=== PATIENT | female | born 1950 | race Caucasian/White ===

== ENCOUNTER → 2018-07-02 07:54 | Outpatient (CLI) | payer MEDICARE, OTHER, SELFPAY ==
[2018-07-02 09:38] LABS: Add Manual Diff / Slide Review NO; Eosinophils Percent Auto 2.3 % (2-4); Hematocrit 43.2 % (36-46); Hemoglobin 14.3 g/dL (12.0-16.0); Lymphocytes Percent Auto 30.3 % (25-40); Mean Corpuscular Hemoglobin 31.4 PG (26-34); Monocytes Percent Auto 9.1 % (3-14); Neutrophils Absolute Auto 3100 /uL (3000-5900); Neutrophils Percent Auto 57.3 % (50-75); Platelet Count 245 X10^3/uL (150-400); Red Blood Cell Count 4.54 X10^6/uL (4.0-5.2); Red Cell Distribution Width 13.5 % (11.6-14.8); White Blood Cell Count 5.4 X10^3/uL (4.5-11.0)
[2018-07-02 10:03] LABS: Alanine Aminotransferase 38 IU/L (9-52); Albumin 4.3 g/dL (3.5-5.0); Alkaline Phosphatase 52 U/L (38-126); Aspartate Aminotransferase 28 IU/L (14-36); BUN Creatinine Ratio 26.7 (6-22); Bilirubin Total 0.5 mg/dL (0.2-1.3); Blood Urea Nitrogen 16 mg/dL (7-17); Calcium 9.2 mg/dL (8.4-10.2); Carbon Dioxide 28 mmol/L (22-32); Chloride 101 mmol/L (98-107); Cholesterol 208 mg/dL (140-199); Estimated Glomerular Filt Rate > 60.0 mL/min (>60); Globulin 2.1 g/dL (1.7-4.1); Glucose 87 mg/dL (80-110); HDL Cholesterol 96 mg/dL (40-60); HEMOLYSIS < 15 (0-50); LDL Cholesterol Calculated 93 mg/dL (<100); Potassium 3.9 mmol/L (3.4-5.1); Sodium 142 mmol/L (137-145); Total Protein 6.4 g/dL (6.3-8.2); Triglycerides 93 mg/dL (35-150)
[2018-07-02 10:17] LABS: Vitamin D 25 Hydroxy (D3) 50.3 ng/mL (30.0-100.0)
[2018-07-02 10:33] LABS: TSH w/ Reflex to FT4 1.36 uIU/mL (0.47-4.68)
== END ==
PROVIDERS: PCP Family Medicine; Visit Provider Family Medicine
DX: E55.9 Vitamin D deficiency, unspecified (principal); Z13.6 Encounter for screening for cardiovascular disorders; M85.9 Disorder of bone density and structure, unspecified; N95.1 Menopausal and female climacteric states; C44.91 Basal cell carcinoma of skin, unspecified
CPT/HCPCS: 36415; 80053; 80061; 82306; 84443; 85025

== ENCOUNTER 2018-07-11 11:48 | Day surgery (SDC) | payer MEDICARE, OTHER, SELFPAY ==
[2018-07-11 12:09] VITALS: BP 130/76; PULSE 74; RESP 16; TEMP 36.4; O2SAT 100; BMI 23.1
[2018-07-11] MEDS: SODIUM CHLORIDE 0.9% 1,000 ML 200 ML IV (12:19)
[2018-07-11] MEDS: MIDAZOLAM 5 MG/5 ML VIAL IV (12:50)
[2018-07-11] MEDS: fentaNYL 250 MCG/5 ML INJ IV (12:51)
[2018-07-11 13:02] VITALS: BP 105/58; PULSE 61; RESP 19; TEMP 36.6; O2SAT 100
--- NOTE | 2018-07-11 13:06 | SUR.PHASEII ---
Pt arrived from endo room awake, vs stable.
[2018-07-11 13:07] VITALS: BP 109/65; PULSE 63; RESP 12; O2SAT 99
--- NOTE | 2018-07-11 17:33 | HP_ITS ---
HISTORY OF PRESENT ILLNESS: A 67-year-old white female patient coming in for a screening colonoscopy, had a prior colonoscopy 10 years ago with no polyps. She is asymptomatic, has no hematochezia or rectal bleeding. No melena. No abdominal pain. Denies diabetes, heart disease, or hypertension. ALLERGIES: NO KNOWN ALLERGIES. MEDICATIONS: Taking no significant medications. REVIEW OF SYSTEMS: Denies exertional chest pain or unusual shortness of breath. GI is as in the HPI. negative. Neurologic: No strokes or seizures. PHYSICAL EXAMINATION VITAL SIGNS: Blood pressure 130/76, heart rate 74. HEENT: Normal. NECK: No adenopathy. LUNGS: Clear. HEART: Regular rhythm. No murmur. ABDOMEN: Soft. No organomegaly. No tenderness. RECTAL: Rectal exam will be done at the time of the colonoscopy. DIAGNOSIS: Screening colonoscopy. Shani Contreras - Nohemy/anne doc#: [id number]/job#: [id number] dd: 07/11/2018 12:33:00 dt: 07/11/2018 17:23:00 DICTATING /COPIES TO: Fernando Sheppard MD COPIES MNE: BRI
--- NOTE | 2018-07-12 07:41 | OP_ITS ---
DATE OF SERVICE: 07/11/2018 PREOP DIAGNOSIS: Screening colonoscopy. POSTOP DIAGNOSIS: Normal colon. OPERATION: Total colonoscopy to the cecum. SURGEON: Fernando Sheppard MD DESCRIPTION OF PROCEDURE: The patient was properly identified during surgical pause. Given conscious sedation, total of 4 of versed and 150 of fentanyl. Flexible fiberoptic colonoscope inserted transanally to the cecum. The patient has a normal colon. No tumors. No polyps. No ulcers. No diverticulosis. The procedure was very well tolerated. Shani Contreras - /anderson/ts doc#: [id number]/job#: [id number] dd: 07/11/2018 13:00:00 dt: 07/12/2018 07:35:00 DICTATING /COPIES TO: Fernando Sheppard MD COPIES MNE: BRI
== END 2018-07-11 13:30 | disposition home or self-care (01) ==
PROVIDERS: Family Provider Family Medicine; PCP Family Medicine; Visit Provider Surgery
PROC: 0DJD8ZZ Inspection of Lower Intestinal Tract, Via Natural or Artificial Opening Endoscopic (ICD-10-PCS; CPT 45378; principal; 2018-07-11 12:45)
DX: Z12.11 Encounter for screening for malignant neoplasm of colon (principal)
CPT/HCPCS: G0121; J2250; J3010

== ENCOUNTER → 2018-07-14 12:43 | Outpatient (CLI) | payer MEDICARE, OTHER, SELFPAY ==
--- NOTE | 2018-07-14 | DI.MG.S_ITS ---
BILATERAL DIGITAL SCREENING MAMMOGRAM 3D/2D WITH CAD: 07/14/2018 CLINICAL: Routine screening. Family history of breast cancer. Comparison is made to exams dated: 07/09/2017 mammogram, 07/03/2016 mammogram, and 07/25/2015 mammogram - [facility]. The tissue of both breasts is heterogeneously dense. This may lower the sensitivity of mammography. Current study was also evaluated with a Computer Aided Detection (CAD) system. No significant masses, calcifications, or other findings are seen in either breast. There has been no significant interval change. IMPRESSION: NEGATIVE There is no mammographic evidence of malignancy. A 1 year screening mammogram is recommended. This exam was interpreted at Station ID: [id number]. NOTE: For mammograms, a report in lay terms will be sent to the patient. Approximately 15% of breast malignancies will not be visualized mammographically. In the management of a palpable breast mass, a negative mammogram must not discourage biopsy of a clinically suspicious lesion. Electronically Signed By: Shun robb/nilda:07/15/2018 11:46:57 letter sent: Normal Exam ACR BI-RADS Category 1: Negative [id number]
--- NOTE | 2018-07-14 | DI.RAD.S_ITS ---
This blank DEXA report has been sent in error by the PACS system. The correct and complete report will be forthcoming in 1-2 days. Thank you for your patience and understanding. Dictated by: Alec Walters M.D. on 07/14/2018 at 14:10 Approved by: Alec Walters M.D. on 07/14/2018 at 14:10
== END ==
PROVIDERS: Family Provider Family Medicine; PCP Family Medicine; Visit Provider Family Medicine
DX: Z80.3 Family history of malignant neoplasm of breast (principal); Z12.31 Encounter for screening mammogram for malignant neoplasm of breast; Z13.820 Encounter for screening for osteoporosis; M85.852 Other specified disorders of bone density and structure, left thigh; Z78.0 Asymptomatic menopausal state; Z82.62 Family history of osteoporosis; Z87.891 Personal history of nicotine dependence
CPT/HCPCS: 77063; 77067; 77080

== ENCOUNTER 2018-08-18 08:15 | Outpatient (RCR) | payer MEDICARE, OTHER, SELFPAY ==
--- NOTE | 2018-07-23 17:53 | PT.OIE ---
Addendum entered and electronically signed by Autumn Cash PT 08/11/18 11:48: Pain in left hip Sciatica, left side Weakness Original Note: Provider Visit Care Team Role Provider Type Zara Ragland MD Attending Provider Physician Family Provider Primary Care Provider Specialty: Family Practice Address: [address] [place] [address], [id number] Email: Physical Therapy Initial Evaluation PT-OP-A Visit Information Start: 07/21/18 17:49 Freq: Status: Active Protocol: Document 07/22/18 09:40 [facility] (Rec: 07/22/18 10:43 [facility] [id number]) Out-Patient Physical Therapy Visit Information Visit Information Visit Type Initial Evaluation Visit Note 1 total Visit Start Time 09:45 Visit Stop Time 10:30 Total Visit Minutes 45 Visit Number 08/21 Number of [employer]LE [employer] LEADER Visits 0 PT-OP-B Current Condition Start: 07/21/18 17:49 Freq: Status: Active Protocol: Document 07/22/18 09:40 [facility] (Rec: 07/22/18 10:43 [facility] [id number]) Current Condition History of Current Condition Onset Date on and off since having kids Current Complaints pain into L buttocks History of Current Condition Pt reports she has been in an RV travelling since detention . Reports she sat a lot and reports it is tight in buttocks and HS. Reports this has happened on and off since having her kids. Pt has been starting to lift again since she came back but it isn't getting better. Pt reports hurts most at night or sedentary. Pt reports she has been able to go for walks and bike rides without issue. She is limited a little bit with lifting partially due to not doing it for a while & d/t pain. Treatment Goals Patient/Caregiver Goals Get program to manage pain & how to avoid making it worse. PT-OP-C Subjective Start: 07/21/18 17:49 Freq: Status: Active Protocol: Document 07/22/18 09:40 [facility] (Rec: 07/22/18 10:43 [facility] [id number]) Patient Questionnaires Lower Extremity Functional Scale LEFS Score 75 LEFS Impairment 1 to 19% Impaired (Score 63-79 ) OP-PT Pain Assessment Location Left Posterior Buttock Pain Location Details buttock to post thigh & lat lower leg & arch&occaionally into iliac crest L Intensity 5 Scale Used Numeric (1 - 10) Description- Other 5/10 at most; Pain Aggravating Factors Sitting Other Pain Alleviating Factors stretching & ibuprofen PT-OP-F Manual Assessment Start: 07/21/18 17:49 Freq: Status: Active Protocol: Document 07/22/18 09:40 [facility] (Rec: 07/22/18 10:43 [facility] [id number]) Manual Assessments Soft Tissue Assessment Soft Tissue Mobility Assessment Tightness and discomfort with glute, piriformis, HS & ITB palpation Joint Mobility Assessment Joint Mobility Assessment greater trochanter equal; innominate L mild elevated and ant PT-OP-G Mobility & Gait Start: 07/21/18 17:49 Freq: Status: Active Protocol: Document 07/22/18 09:40 [facility] (Rec: 07/22/18 10:43 [facility] [id number]) OP Gait Assessment Comments Gait Comments Dec ant elevation & post depression B PT-OP-J Posture/Palpation/Skin Start: 07/21/18 17:49 Freq: Status: Active Protocol: Document 07/22/18 09:40 [facility] (Rec: 07/22/18 10:43 [facility] [id number]) Posture Evaluation [facility] Postural Classification System [facility] Postural Classifications Vertical/Posterior Vertebral Compression Test 3 Elbow Flexion Test 3 Lumbar Protective Mechanism Left AP 5 Lumbar Protective Mechanism Right AP 4 Lumbar Protective Mechanism Left PA 2 Lumbar Protective Mechanism Right PA 3 Leg Swing Left Hard End Feel Limited Pain Leg Swing Right WNL PT-OP-L Special Tests Start: 07/21/18 17:49 Freq: Status: Active Protocol: Document 07/22/18 09:40 [facility] (Rec: 07/22/18 10:43 [facility] [id number]) Special Tests Lumbar Spine Special Tests Slump Test Results neg R and L positive Straight Leg Raise Test Results positive L; negative R PT-OP-M Strength Start: 07/21/18 17:49 Freq: Status: Active Protocol: Document 07/22/18 09:40 [facility] (Rec: 07/22/18 10:43 [facility] [id number]) Hip Strength Hip Manual Muscle Testing Right Flexion (L2) 5 Normal Extension (S1) 5 Normal Abduction 5 Normal Adduction 5 Normal External Rotation 5 Normal Internal Rotation 5 Normal Left Flexion (L2) 5 Normal Extension (S1) 4+ Good+ Abduction 4 Good Adduction 4+ Good+ External Rotation 4 Good Internal Rotation 4 Good Comments pain with IR/ER, add and abd & ext Knee Strength Knee Manual Muscle Testing Right Flexion (S2) 5 Normal Extension (L3) 5 Normal Left Flexion (S2) 4+ Good+ Extension (L3) 5 Normal Comments pain with flex Ankle/Foot Strength Ankle and Foot Manual Muscle Testing Right Dorsiflexion (L4) 5 Normal Plantarflexion (S1) 5 Normal Left Dorsiflexion (L4) 5 Normal Plantarflexion (S1) 5 Normal Comments pain in L butt & arch with PF PT-OP-Q Treatments Start: 07/21/18 17:49 Freq: Status: Active Protocol: Document 07/22/18 09:40 [facility] (Rec: 07/22/18 10:43 [facility] [id number]) Therapeutic Exercises Prone Exercises IR Prone Exercise Name IR with focus on neutral pelvis Side left Equipment Used L1 Reps/Minutes 10 ER Prone Exercise Name ER with focus on ant glide of femoral head Side left Manual Therapy Treatment Joint Mobilizations hip Joint hip Direction on axis ER & IR FM Body Position Prone Comments w/neuro re edu in end ranges PT-OP-T Assessment and Plan Start: 07/21/18 17:49 Freq: Status: Active Protocol: Document 07/22/18 09:40 [facility] (Rec: 07/23/18 17:53 [facility] [id number]) Physical Therapy Assessment Rehab Potential Rehabilitation Potential Good Evaluation Complexity Number of Personal Factors/Comorbidities 1-2 Number of Body Systems Impaired 4 or More Clinical Presentation at Evaluation Evolving Impairments Impairments Activity Tolerance Functional Activities Gait Pain Posture Soft Tissue Mobility Strength Goals posture Short Term Goal (STG) Pt will be able to demonstate good sleeping & sitting posture. STG Duration 08/23/18 strength Impairment strength Short Term Goal (STG) Pt will be indep with HEP. STG Duration 08/11/18 Nursing Home Goal (LTG) Pt will demonstate improved strength with grossly 4+/5 strength on L and 4/5 with VCT , EFT and LPM testing. LTG Duration 08/23/18 Assessment Summary Assessment Pt presents with piriformis syndrom of L side with radiating pain to LLE. Pt has SI dysfunction with mild elevation of L side of pelvis and dec core stability. Pt is limited in time to work with PT as she leaves for a long trip in about 3 weeks. Physical Therapy Plan Frequency and Duration Frequency of Treatment 2x/Week Duration of Treatment 1 month Plan of Care Start Date 07/22/18 Plan of Care End Date 08/22/18 Therapeutic Interventions Therapeutic Interventions Aquatic Therapy Balance Training Gait Training Home Exercise Program Joint Mobilizations Manual Therapy Neuromuscular Re-education Patient/Caregiver Education Self-Care/Home Management Soft Tissue Mobilization Taping Therapeutic Activities Therapeutic Exercises Modalities Cold Pack/Ice Massage Electric Stimulation Hot Packs Traction- Mechanical Ultrasound Next Visit Focus/Plan Next Note Type Treatment Note Next Visit Plan Assess pt ability to hip flex with appriopriate hip, innominate, sacral and lumbar motion, innominate and sacral mobs, gentle stretching to piriformis, HS & calf, progress core exercises.
--- NOTE | 2018-07-23 17:54 | PT.OPPOC ---
Provider Visit Care Team Role Provider Type Zara Ragland MD Attending Provider Physician Family Provider Primary Care Provider Specialty: Family Practice Address: [address] [place] [address], [phone] Email: Plan Of Care PT-OP-T Assessment and Plan Start: 07/21/18 17:49 Freq: Status: Active Protocol: Document 07/22/18 09:40 [facility] (Rec: 07/23/18 17:53 [facility] [id number]) Physical Therapy Assessment Rehab Potential Rehabilitation Potential Good Evaluation Complexity Number of Personal Factors/Comorbidities 1-2 Number of Body Systems Impaired 4 or More Clinical Presentation at Evaluation Evolving Impairments Impairments Activity Tolerance Functional Activities Gait Pain Posture Soft Tissue Mobility Strength Goals posture Short Term Goal (STG) Pt will be able to demonstate good sleeping & sitting posture. STG Duration 08/23/18 strength Impairment strength Short Term Goal (STG) Pt will be indep with HEP. STG Duration 08/11/18 Residential Goal (LTG) Pt will demonstate improved strength with grossly 4+/5 strength on L and 4/5 with VCT , EFT and LPM testing. LTG Duration 08/23/18 Assessment Summary Assessment Pt presents with piriformis syndrom of L side with radiating pain to LLE. Pt has SI dysfunction with mild elevation of L side of pelvis and dec core stability. Pt is limited in time to work with PT as she leaves for a long trip in about 3 weeks. Physical Therapy Plan Frequency and Duration Frequency of Treatment 2x/Week Duration of Treatment 1 month Plan of Care Start Date 07/22/18 Plan of Care End Date 08/22/18 Therapeutic Interventions Therapeutic Interventions Aquatic Therapy Balance Training Gait Training Home Exercise Program Joint Mobilizations Manual Therapy Neuromuscular Re-education Patient/Caregiver Education Self-Care/Home Management Soft Tissue Mobilization Taping Therapeutic Activities Therapeutic Exercises Modalities Cold Pack/Ice Massage Electric Stimulation Hot Packs Traction- Mechanical Ultrasound Next Visit Focus/Plan Next Note Type Treatment Note Next Visit Plan Assess pt ability to hip flex with appriopriate hip, innominate, sacral and lumbar motion, innominate and sacral mobs, gentle stretching to piriformis, HS & calf, progress core exercises. Plan of Care Dates Plan of Care Start Date 07/22/18 Plan of Care End Date 01/11/19 Please Sign and Return: I have reviewed this Plan of Care and certify that the skilled therapy services above are required to meet the patient?s needs. Physician Signature Date Printed Name and Credentials Clinical Instructor Signature Printed Name and Credentials
--- NOTE | 2018-07-24 11:50 | PT.OTN ---
Physical Therapy Treatment Note PT-OP-A Visit Information Start: 07/21/18 17:49 Freq: Status: Active Protocol: Document 07/24/18 11:32 [facility] (Rec: 07/24/18 11:50 [facility] LICENSE OF [facility] [id number]) Out-Patient Physical Therapy Visit Information Visit Information Visit Type Treatment Note Visit Start Time 09:45 Visit Stop Time 10:30 Total Visit Minutes 45 Visit Number 2/10 Number of PURCHASING BUYER Visits 0 PT-OP-B Current Condition Start: 07/21/18 17:49 Freq: Status: Active Protocol: Document 07/22/18 09:40 [facility] (Rec: 07/22/18 10:43 [facility] [id number]) Current Condition History of Current Condition Onset Date on and off since having kids Current Complaints pain into L buttocks History of Current Condition Pt reports she has been in an RV travelling since senior living . Reports she sat a lot and reports it is tight in buttocks and HS. Reports this has happened on and off since having her kids. Pt has been starting to lift again since she came back but it isn't getting better. Pt reports hurts most at night or sedentary. Pt reports she has been able to go for walks and bike rides without issue. She is limited a little bit with lifting partially due to not doing it for a while & d/t pain. Treatment Goals Patient/Caregiver Goals Get program to manage pain & how to avoid making it worse. PT-OP-C Subjective Start: 07/21/18 17:49 Freq: Status: Active Protocol: Document 07/24/18 11:32 [facility] (Rec: 07/24/18 11:50 ON LICENSE OF [facility] [id number]) OP-PT Subjective Patient Comments Patient Comments Shani reports she has been working on her hip ER/ER exercises, she feels like she has a little better motion but still feels much tighter in the left hip more sore than right PT-OP-F Manual Assessment Start: 07/21/18 17:49 Freq: Status: Active Protocol: Document 07/22/18 09:40 [facility] (Rec: 07/22/18 10:43 [facility] [id number]) Manual Assessments Soft Tissue Assessment Soft Tissue Mobility Assessment Tightness and discomfort with glute, piriformis, HS & ITB palpation Joint Mobility Assessment Joint Mobility Assessment greater trochanter equal; innominate L mild elevated and ant PT-OP-G Mobility & Gait Start: 07/21/18 17:49 Freq: Status: Active Protocol: Document 07/22/18 09:40 [facility] (Rec: 07/22/18 10:43 [facility] [id number]) OP Gait Assessment Comments Gait Comments Dec ant elevation & post depression B PT-OP-J Posture/Palpation/Skin Start: 07/21/18 17:49 Freq: Status: Active Protocol: Document 07/22/18 09:40 [facility] (Rec: 07/22/18 10:43 [facility] [id number]) Posture Evaluation [facility] Postural Classification System [facility] Postural Classifications Vertical/Posterior Vertebral Compression Test 3 Elbow Flexion Test 3 Lumbar Protective Mechanism Left AP 5 Lumbar Protective Mechanism Right AP 4 Lumbar Protective Mechanism Left PA 2 Lumbar Protective Mechanism Right PA 3 Leg Swing Left Hard End Feel Limited Pain Leg Swing Right WNL PT-OP-L Special Tests Start: 07/21/18 17:49 Freq: Status: Active Protocol: Document 07/22/18 09:40 [facility] (Rec: 07/22/18 10:43 [facility] [id number]) Special Tests Lumbar Spine Special Tests Slump Test Results neg R and L positive Straight Leg Raise Test Results positive L; negative R PT-OP-M Strength Start: 07/21/18 17:49 Freq: Status: Active Protocol: Document 07/22/18 09:40 [facility] (Rec: 07/22/18 10:43 [facility] [id number]) Hip Strength Hip Manual Muscle Testing Right Flexion (L2) 5 Normal Extension (S1) 5 Normal Abduction 5 Normal Adduction 5 Normal External Rotation 5 Normal Internal Rotation 5 Normal Left Flexion (L2) 5 Normal Extension (S1) 4+ Good+ Abduction 4 Good Adduction 4+ Good+ External Rotation 4 Good Internal Rotation 4 Good Comments pain with IR/ER, add and abd & ext Knee Strength Knee Manual Muscle Testing Right Flexion (S2) 5 Normal Extension (L3) 5 Normal Left Flexion (S2) 4+ Good+ Extension (L3) 5 Normal Comments pain with flex Ankle/Foot Strength Ankle and Foot Manual Muscle Testing Right Dorsiflexion (L4) 5 Normal Plantarflexion (S1) 5 Normal Left Dorsiflexion (L4) 5 Normal Plantarflexion (S1) 5 Normal Comments pain in L butt & arch with PF PT-OP-Q Treatments Start: 07/21/18 17:49 Freq: Status: Active Protocol: Document 07/24/18 11:32 [facility] (Rec: 07/24/18 11:50 [facility] [id number]) Therapeutic Exercises Prone Exercises 1 Prone Exercise Name prone quad stretch IR Prone Exercise Name IR with focus on neutral pelvis Side left Equipment Used L1 Reps/Minutes 10 ER Prone Exercise Name ER with focus on ant glide of femoral head Side left Other Exercises 2 Other Exercise Name lunge position stretch 1 Other Exercise Name adductor stretch in a V sitting position Manual Therapy Treatment Soft Tissue Mobilization 2 Body Location MFR over the piriformis on the left side Comments with manual stretch into IR/ER 1 Body Location adductor release on the left Joint Mobilizations 1 Joint hip ER with lateral distraction using the manual therapy belt hip Joint hip Direction on axis ER & IR FM Body Position Prone Comments w/neuro re edu in end ranges PT-OP-R Modalities Start: 07/21/18 17:49 Freq: Status: Active Protocol: Document 07/24/18 11:50 [facility] (Rec: 07/24/18 11:50 [facility] [id number]) Hot Pack/Cold Pack Treatment Cold Pack Location SI joint and and anterior left hip Patient Position Prone Treatment Duration (minutes) 10 PT-OP-T Assessment and Plan Start: 07/21/18 17:49 Freq: Status: Active Protocol: Document 07/24/18 11:32 [facility] (Rec: 07/24/18 11:50 [facility] [id number]) Physical Therapy Assessment Assessment Summary Assessment treatment focused on improving femoral mobility for improved rotation of the left hip. Shani felt she had more motion today than she had prior to starting PT. She is very tight and guarded in the adductors, piformis, and sacral spinus ligament was taunt. Physical Therapy Plan Frequency and Duration Frequency of Treatment 2x/Week Duration of Treatment 1 month Plan of Care Start Date 07/22/18 Plan of Care End Date 08/22/18 Therapeutic Interventions Therapeutic Interventions Aquatic Therapy Balance Training Gait Training Home Exercise Program Joint Mobilizations Manual Therapy Neuromuscular Re-education Patient/Caregiver Education Self-Care/Home Management Soft Tissue Mobilization Taping Therapeutic Activities Therapeutic Exercises Modalities Cold Pack/Ice Massage Electric Stimulation Hot Packs Traction- Mechanical Ultrasound Next Visit Focus/Plan Next Note Type Treatment Note Next Visit Plan progress core stabilization, continue with hip and sacral mobilizations, initiate hip abduction exercises
--- NOTE | 2018-07-29 14:22 | PT.OTN ---
Physical Therapy Treatment Note PT-OP-A Visit Information Start: 07/21/18 17:49 Freq: Status: Active Protocol: Document 07/29/18 14:11 [facility] (Rec: 07/29/18 14:22 [facility] [id number]) Out-Patient Physical Therapy Visit Information Visit Information Visit Type Treatment Note Visit Start Time 09:45 Visit Stop Time 10:40 Total Visit Minutes 55 Visit Number 3/10 Number of INSOLE TOE SNIPPING MACHINE OPERATOR Visits 0 PT-OP-B Current Condition Start: 07/21/18 17:49 Freq: Status: Active Protocol: Document 07/22/18 09:40 [facility] (Rec: 07/22/18 10:43 [facility] [id number]) Current Condition History of Current Condition Onset Date on and off since having kids Current Complaints pain into L buttocks History of Current Condition Pt reports she has been in an RV travelling since [place] . Reports she sat a lot and reports it is tight in buttocks and HS. Reports this has happened on and off since having her kids. Pt has been starting to lift again since she came back but it isn't getting better. Pt reports hurts most at night or sedentary. Pt reports she has been able to go for walks and bike rides without issue. She is limited a little bit with lifting partially due to not doing it for a while & d/t pain. Treatment Goals Patient/Caregiver Goals Get program to manage pain & how to avoid making it worse. PT-OP-C Subjective Start: 07/21/18 17:49 Freq: Status: Active Protocol: Document 07/29/18 14:11 [facility] (Rec: 07/29/18 14:22 [facility] [id number]) OP-PT Subjective Patient Comments Patient Comments Pt reports she felt better after last session. PT-OP-F Manual Assessment Start: 07/21/18 17:49 Freq: Status: Active Protocol: Document 07/22/18 09:40 [facility] (Rec: 07/22/18 10:43 [facility] [id number]) Manual Assessments Soft Tissue Assessment Soft Tissue Mobility Assessment Tightness and discomfort with glute, piriformis, HS & ITB palpation Joint Mobility Assessment Joint Mobility Assessment greater trochanter equal; innominate L mild elevated and ant PT-OP-G Mobility & Gait Start: 07/21/18 17:49 Freq: Status: Active Protocol: Document 07/22/18 09:40 [facility] (Rec: 07/22/18 10:43 [facility] [id number]) OP Gait Assessment Comments Gait Comments Dec ant elevation & post depression B PT-OP-J Posture/Palpation/Skin Start: 07/21/18 17:49 Freq: Status: Active Protocol: Document 07/22/18 09:40 [facility] (Rec: 07/22/18 10:43 [facility] [id number]) Posture Evaluation [facility] Postural Classification System [facility] Postural Classifications Vertical/Posterior Vertebral Compression Test 3 Elbow Flexion Test 3 Lumbar Protective Mechanism Left AP 5 Lumbar Protective Mechanism Right AP 4 Lumbar Protective Mechanism Left PA 2 Lumbar Protective Mechanism Right PA 3 Leg Swing Left Hard End Feel Limited Pain Leg Swing Right WNL PT-OP-L Special Tests Start: 07/21/18 17:49 Freq: Status: Active Protocol: Document 07/22/18 09:40 [facility] (Rec: 07/22/18 10:43 [facility] [id number]) Special Tests Lumbar Spine Special Tests Slump Test Results neg R and L positive Straight Leg Raise Test Results positive L; negative R PT-OP-M Strength Start: 07/21/18 17:49 Freq: Status: Active Protocol: Document 07/22/18 09:40 [facility] (Rec: 07/22/18 10:43 [facility] [id number]) Hip Strength Hip Manual Muscle Testing Right Flexion (L2) 5 Normal Extension (S1) 5 Normal Abduction 5 Normal Adduction 5 Normal External Rotation 5 Normal Internal Rotation 5 Normal Left Flexion (L2) 5 Normal Extension (S1) 4+ Good+ Abduction 4 Good Adduction 4+ Good+ External Rotation 4 Good Internal Rotation 4 Good Comments pain with IR/ER, add and abd & ext Knee Strength Knee Manual Muscle Testing Right Flexion (S2) 5 Normal Extension (L3) 5 Normal Left Flexion (S2) 4+ Good+ Extension (L3) 5 Normal Comments pain with flex Ankle/Foot Strength Ankle and Foot Manual Muscle Testing Right Dorsiflexion (L4) 5 Normal Plantarflexion (S1) 5 Normal Left Dorsiflexion (L4) 5 Normal Plantarflexion (S1) 5 Normal Comments pain in L butt & arch with PF PT-OP-Q Treatments Start: 07/21/18 17:49 Freq: Status: Active Protocol: Document 07/29/18 14:11 [facility] (Rec: 07/29/18 14:22 [facility] [id number]) Therapeutic Exercises Supine Exercises bicycle Supine Exercise Name supine single leg flex with progression to bicycle abdominal series Supine Exercise Name abdominal series flex Reps/Minutes 30 sec Prone Exercises ER Prone Exercise Name ER with focus on ant glide of femoral head Side left Comments L1 band Manual Therapy Treatment Soft Tissue Mobilization 2 Body Location MFR over the piriformis on the left side Comments with manual stretch into IR/ER Joint Mobilizations innominate Joint innominate Direction flex FM sacrum Joint sacrum Direction PA FM w/IR/ER 1 Joint hip Direction inf FM hip Joint hip Direction on axis ER FM Body Position Prone Comments w/neuro re edu in end ranges PT-OP-R Modalities Start: 07/21/18 17:49 Freq: Status: Active Protocol: Document 07/29/18 14:11 [facility] (Rec: 07/29/18 14:22 [facility] [email or web address]) Hot Pack/Cold Pack Treatment Cold Pack Location SI joint and and anterior left hip Patient Position Supine Treatment Duration (minutes) 10 PT-OP-T Assessment and Plan Start: 07/21/18 17:49 Freq: Status: Active Protocol: Document 07/29/18 14:11 [facility] (Rec: 07/29/18 14:22 [facility] [id number]) Physical Therapy Assessment Goals posture Short Term Goal (STG) Pt will be able to demonstate good sleeping & sitting posture. STG Duration 08/23/18 strength Impairment strength Short Term Goal (STG) Pt will be indep with HEP. STG Duration 08/11/18 Junior Art Director Goal (LTG) Pt will demonstate improved strength with grossly 4+/5 strength on L and 4/5 with VCT , EFT and LPM testing. LTG Duration 08/23/18 Assessment Summary Assessment Pt improved rotation with treatment. She had dec core activation on L with inc hip faciliation with hip flexion pattern resistance which improved with mobilizations of hip and innominate. Physical Therapy Plan Frequency and Duration Frequency of Treatment 2x/Week Duration of Treatment 1 month Plan of Care Start Date 07/22/18 Plan of Care End Date 08/22/18 Next Visit Focus/Plan Next Note Type Treatment Note Next Visit Plan Progress core &hip abd exercise, work on innominate mobilizations
--- NOTE | 2018-07-31 11:58 | PT.OTN ---
Physical Therapy Treatment Note PT-OP-A Visit Information Start: 07/21/18 17:49 Freq: Status: Active Protocol: Document 07/31/18 08:17 [facility] (Rec: 07/31/18 11:58 [facility] [id number]) Out-Patient Physical Therapy Visit Information Visit Information Visit Type Treatment Note Visit Start Time 08:15 Visit Stop Time 09:05 Total Visit Minutes 50 Visit Number 4/10 Number of SCHEDULING ASSISTANT Visits 0 PT-OP-B Current Condition Start: 07/21/18 17:49 Freq: Status: Active Protocol: Document 07/22/18 09:40 [facility] (Rec: 07/22/18 10:43 [facility] [id number]) Current Condition History of Current Condition Onset Date on and off since having kids Current Complaints pain into L buttocks History of Current Condition Pt reports she has been in an RV travelling since assisted . Reports she sat a lot and reports it is tight in buttocks and HS. Reports this has happened on and off since having her kids. Pt has been starting to lift again since she came back but it isn't getting better. Pt reports hurts most at night or sedentary. Pt reports she has been able to go for walks and bike rides without issue. She is limited a little bit with lifting partially due to not doing it for a while & d/t pain. Treatment Goals Patient/Caregiver Goals Get program to manage pain & how to avoid making it worse. PT-OP-C Subjective Start: 07/21/18 17:49 Freq: Status: Active Protocol: Document 07/31/18 08:17 [facility] (Rec: 07/31/18 10:26 [facility] [id number]) OP-PT Subjective Patient Comments Patient Comments Reports soreness after exercises and going to the gym , but reports she has still been able to sleep at night. PT-OP-F Manual Assessment Start: 07/21/18 17:49 Freq: Status: Active Protocol: Document 07/22/18 09:40 [facility] (Rec: 07/22/18 10:43 [facility] [id number]) Manual Assessments Soft Tissue Assessment Soft Tissue Mobility Assessment Tightness and discomfort with glute, piriformis, HS & ITB palpation Joint Mobility Assessment Joint Mobility Assessment greater trochanter equal; innominate L mild elevated and ant PT-OP-G Mobility & Gait Start: 07/21/18 17:49 Freq: Status: Active Protocol: Document 07/22/18 09:40 [facility] (Rec: 07/22/18 10:43 [facility] [id number]) OP Gait Assessment Comments Gait Comments Dec ant elevation & post depression B PT-OP-J Posture/Palpation/Skin Start: 07/21/18 17:49 Freq: Status: Active Protocol: Document 07/22/18 09:40 [facility] (Rec: 07/22/18 10:43 [facility] [id number]) Posture Evaluation [facility] Postural Classification System [facility] Postural Classifications Vertical/Posterior Vertebral Compression Test 3 Elbow Flexion Test 3 Lumbar Protective Mechanism Left AP 5 Lumbar Protective Mechanism Right AP 4 Lumbar Protective Mechanism Left PA 2 Lumbar Protective Mechanism Right PA 3 Leg Swing Left Hard End Feel Limited Pain Leg Swing Right WNL PT-OP-L Special Tests Start: 07/21/18 17:49 Freq: Status: Active Protocol: Document 07/22/18 09:40 [facility] (Rec: 07/22/18 10:43 [facility] [id number]) Special Tests Lumbar Spine Special Tests Slump Test Results neg R and L positive Straight Leg Raise Test Results positive L; negative R PT-OP-M Strength Start: 07/21/18 17:49 Freq: Status: Active Protocol: Document 07/22/18 09:40 [facility] (Rec: 07/22/18 10:43 [facility] [id number]) Hip Strength Hip Manual Muscle Testing Right Flexion (L2) 5 Normal Extension (S1) 5 Normal Abduction 5 Normal Adduction 5 Normal External Rotation 5 Normal Internal Rotation 5 Normal Left Flexion (L2) 5 Normal Extension (S1) 4+ Good+ Abduction 4 Good Adduction 4+ Good+ External Rotation 4 Good Internal Rotation 4 Good Comments pain with IR/ER, add and abd & ext Knee Strength Knee Manual Muscle Testing Right Flexion (S2) 5 Normal Extension (L3) 5 Normal Left Flexion (S2) 4+ Good+ Extension (L3) 5 Normal Comments pain with flex Ankle/Foot Strength Ankle and Foot Manual Muscle Testing Right Dorsiflexion (L4) 5 Normal Plantarflexion (S1) 5 Normal Left Dorsiflexion (L4) 5 Normal Plantarflexion (S1) 5 Normal Comments pain in L butt & arch with PF PT-OP-Q Treatments Start: 07/21/18 17:49 Freq: Status: Active Protocol: Document 07/31/18 08:17 [facility] (Rec: 07/31/18 10:26 [facility] [id number]) Therapeutic Exercises Supine Exercises stretches Supine Exercise Name figure 4 and opposite knee to chest stretch abdominal series Supine Exercise Name abdominal series flex Reps/Minutes 30 sec Prone Exercises IR Prone Exercise Name IR with focus on neutral pelvis Side left Equipment Used L1 Reps/Minutes 10 ER Prone Exercise Name ER with focus on ant glide of femoral head Side left Comments L1 band Sidelying Exercises abd Sidelying Exercise Name hip abd against wall Side left Reps/Minutes 10 Manual Therapy Treatment Soft Tissue Mobilization 2 Body Location MFR over the piriformis on the left side Comments with manual stretch into IR/ER 1 Body Location iliacus Mobilization Type Sustained Pressure Joint Mobilizations innominate Joint innominate L Direction Caudal FM, ER & IR FM sacrum Joint sacrum Direction PA FM w/IR/ER hip Joint hip Direction on axis ER FM Body Position Prone Comments w/neuro re edu in end ranges PT-OP-R Modalities Start: 07/21/18 17:49 Freq: Status: Active Protocol: Document 07/31/18 08:17 [facility] (Rec: 07/31/18 11:58 [facility] [id number]) Hot Pack/Cold Pack Treatment Cold Pack Location SI joint and and anterior left hip Patient Position Supine Treatment Duration (minutes) 10 PT-OP-T Assessment and Plan Start: 07/21/18 17:49 Freq: Status: Active Protocol: Document 07/31/18 08:17 [facility] (Rec: 07/31/18 11:58 [facility] [id number]) Physical Therapy Assessment Goals posture Short Term Goal (STG) Pt will be able to demonstate good sleeping & sitting posture. STG Duration 08/23/18 strength Impairment strength Short Term Goal (STG) Pt will be indep with HEP. STG Duration 08/11/18 Quality Assurance Analyst Goal (LTG) Pt will demonstate improved strength with grossly 4+/5 strength on L and 4/5 with VCT , EFT and LPM testing. LTG Duration 08/23/18 Assessment Summary Assessment Pt had improved ER after treatment and is improving with ability to do LE strengthening. She is doing well with HEP exercises and required min cueing. Educated on tennis ball use. Physical Therapy Plan Frequency and Duration Frequency of Treatment 2x/Week Duration of Treatment 1 month Plan of Care Start Date 07/22/18 Plan of Care End Date 08/22/18 Next Visit Focus/Plan Next Note Type Treatment Note Next Visit Plan Progress core stability & assess pelvis position and correct as needed, cont to work on piriformis restrictions
--- NOTE | 2018-08-07 18:09 | PT.OTN ---
Physical Therapy Treatment Note PT-OP-A Visit Information Start: 07/21/18 17:49 Freq: Status: Active Protocol: Document 08/07/18 04:50 [facility] (Rec: 08/07/18 18:09 [email or web address]) Out-Patient Physical Therapy Visit Information Visit Information Visit Type Treatment Note Visit Start Time 16:50 Visit Stop Time 17:43 Total Visit Minutes 53 Visit Number 5/10 Number of LATHE HAND Visits 0 PT-OP-B Current Condition Start: 07/21/18 17:49 Freq: Status: Active Protocol: Document 07/22/18 09:40 [facility] (Rec: 07/22/18 10:43 [facility] [id number]) Current Condition History of Current Condition Onset Date on and off since having kids Current Complaints pain into L buttocks History of Current Condition Pt reports she has been in an RV travelling since group home . Reports she sat a lot and reports it is tight in buttocks and HS. Reports this has happened on and off since having her kids. Pt has been starting to lift again since she came back but it isn't getting better. Pt reports hurts most at night or sedentary. Pt reports she has been able to go for walks and bike rides without issue. She is limited a little bit with lifting partially due to not doing it for a while & d/t pain. Treatment Goals Patient/Caregiver Goals Get program to manage pain & how to avoid making it worse. PT-OP-C Subjective Start: 07/21/18 17:49 Freq: Status: Active Protocol: Document 08/07/18 04:50 [facility] (Rec: 08/07/18 18:09 [email or web address]) OP-PT Subjective Patient Comments Patient Comments reports increased soreness and radiating discomfort at her L LE after skiing over the weekend. Pt also c/o soreness at her R buttock due to I was putting a lot of weight on my R side while skiing and i got very sore the day after. Pt also c/o difficulty squatting without feeling L buttock and leg tightness during yoga class. PT-OP-F Manual Assessment Start: 07/21/18 17:49 Freq: Status: Active Protocol: Document 07/22/18 09:40 [facility] (Rec: 07/22/18 10:43 [facility] [id number]) Manual Assessments Soft Tissue Assessment Soft Tissue Mobility Assessment Tightness and discomfort with glute, piriformis, HS & ITB palpation Joint Mobility Assessment Joint Mobility Assessment greater trochanter equal; innominate L mild elevated and ant PT-OP-G Mobility & Gait Start: 07/21/18 17:49 Freq: Status: Active Protocol: Document 07/22/18 09:40 [facility] (Rec: 07/22/18 10:43 [facility] [id number]) OP Gait Assessment Comments Gait Comments Dec ant elevation & post depression B PT-OP-J Posture/Palpation/Skin Start: 07/21/18 17:49 Freq: Status: Active Protocol: Document 07/22/18 09:40 [facility] (Rec: 07/22/18 10:43 [facility] [id number]) Posture Evaluation [facility] Postural Classification System [facility] Postural Classifications Vertical/Posterior Vertebral Compression Test 3 Elbow Flexion Test 3 Lumbar Protective Mechanism Left AP 5 Lumbar Protective Mechanism Right AP 4 Lumbar Protective Mechanism Left PA 2 Lumbar Protective Mechanism Right PA 3 Leg Swing Left Hard End Feel Limited Pain Leg Swing Right WNL PT-OP-L Special Tests Start: 07/21/18 17:49 Freq: Status: Active Protocol: Document 07/22/18 09:40 [facility] (Rec: 07/22/18 10:43 [facility] [id number]) Special Tests Lumbar Spine Special Tests Slump Test Results neg R and L positive Straight Leg Raise Test Results positive L; negative R PT-OP-M Strength Start: 07/21/18 17:49 Freq: Status: Active Protocol: Document 07/22/18 09:40 [facility] (Rec: 07/22/18 10:43 [facility] [id number]) Hip Strength Hip Manual Muscle Testing Right Flexion (L2) 5 Normal Extension (S1) 5 Normal Abduction 5 Normal Adduction 5 Normal External Rotation 5 Normal Internal Rotation 5 Normal Left Flexion (L2) 5 Normal Extension (S1) 4+ Good+ Abduction 4 Good Adduction 4+ Good+ External Rotation 4 Good Internal Rotation 4 Good Comments pain with IR/ER, add and abd & ext Knee Strength Knee Manual Muscle Testing Right Flexion (S2) 5 Normal Extension (L3) 5 Normal Left Flexion (S2) 4+ Good+ Extension (L3) 5 Normal Comments pain with flex Ankle/Foot Strength Ankle and Foot Manual Muscle Testing Right Dorsiflexion (L4) 5 Normal Plantarflexion (S1) 5 Normal Left Dorsiflexion (L4) 5 Normal Plantarflexion (S1) 5 Normal Comments pain in L butt & arch with PF PT-OP-Q Treatments Start: 07/21/18 17:49 Freq: Status: Active Protocol: Document 08/07/18 04:50 [facility] (Rec: 08/07/18 18:09 [facility] [email or web address]) Therapeutic Exercises Prone Exercises IR Prone Exercise Name IR with focus on neutral pelvis Side left Resistance PT resistance Reps/Minutes 10 ER Prone Exercise Name ER with focus on ant glide of femoral head Side left Resistance PT resistance Reps/Minutes 10 Manual Therapy Treatment Soft Tissue Mobilization 2 Body Location MFR over the piriformis and prox gluteal max on the left side Comments with manual stretch into IR/ ER and active IR and ER Neuro Re-Education Treatment Other Activities squat with manual resistance on L hip ER Reps/Duration 10 mins Comments squat with manual resistance on L knee PT-OP-R Modalities Start: 07/21/18 17:49 Freq: Status: Active Protocol: Document 07/31/18 08:17 [facility] (Rec: 07/31/18 11:58 [facility] [id number]) Hot Pack/Cold Pack Treatment Cold Pack Location SI joint and and anterior left hip Patient Position Supine Treatment Duration (minutes) 10 PT-OP-T Assessment and Plan Start: 07/21/18 17:49 Freq: Status: Active Protocol: Document 08/07/18 04:50 (Rec: 08/07/18 18:09 [email or web address]) Physical Therapy Assessment Assessment Summary Assessment Pt c/o increased soreness after skiing over the weekend. Upon assessment, pt had difficulty engaging L glut max and medius during hip extension and squatting activities. Pt c/o tightness along the lateral HS and peroneal muscles. After active release at piriformis and glut stabilizers, Pt is then able to squat to bottom without pain and symptoms with manual resistance on L hip ER to engage hip abductors. New warm up exercise is given with resisted hip ER before her yoga class. Physical Therapy Plan Therapeutic Interventions Therapeutic Interventions Aquatic Therapy Balance Training Gait Training Home Exercise Program Joint Mobilizations Manual Therapy Neuromuscular Re-education Patient/Caregiver Education Self-Care/Home Management Soft Tissue Mobilization Taping Therapeutic Activities Therapeutic Exercises Modalities Cold Pack/Ice Massage Electric Stimulation Hot Packs Traction- Mechanical Ultrasound Next Visit Focus/Plan Next Note Type Treatment Note Next Visit Plan manual therapy on glut and piriformis to regain hip ER and IR. cont manual resisted hip ER during squat to facilitate gluteal activation
--- NOTE | 2018-08-11 16:39 | PT.OTN ---
Current Diagnoses Pain in left hip (08/11/18) Sciatica, left side (08/11/18) Weakness (08/11/18) Physical Therapy Treatment Note PT-OP-A Visit Information Start: 07/21/18 17:49 Freq: Status: Active Protocol: Document 08/11/18 07:30 AMB (Rec: 08/11/18 08:17 AMB [id number]) Out-Patient Physical Therapy Visit Information Visit Information Visit Type Treatment Note Visit Start Time 07:30 Visit Stop Time 08:25 Total Visit Minutes 55 Visit Number 6 Number of PATTERN ATTENDANT Visits 0 PT-OP-B Current Condition Start: 07/21/18 17:49 Freq: Status: Active Protocol: Document 07/22/18 09:40 [facility] (Rec: 07/22/18 10:43 [facility] [id number]) Current Condition History of Current Condition Onset Date on and off since having kids Current Complaints pain into L buttocks History of Current Condition Pt reports she has been in an RV travelling since intermediate . Reports she sat a lot and reports it is tight in buttocks and HS. Reports this has happened on and off since having her kids. Pt has been starting to lift again since she came back but it isn't getting better. Pt reports hurts most at night or sedentary. Pt reports she has been able to go for walks and bike rides without issue. She is limited a little bit with lifting partially due to not doing it for a while & d/t pain. Treatment Goals Patient/Caregiver Goals Get program to manage pain & how to avoid making it worse. PT-OP-C Subjective Start: 07/21/18 17:49 Freq: Status: Active Protocol: Document 08/11/18 07:30 AMB (Rec: 08/11/18 08:17 AMB [id number]) OP-PT Subjective Patient Comments Patient Comments Reports soreness after 2 hours of sitting doing [facility] last night. PT-OP-F Manual Assessment Start: 07/21/18 17:49 Freq: Status: Active Protocol: Document 07/22/18 09:40 [facility] (Rec: 07/22/18 10:43 [facility] [id number]) Manual Assessments Soft Tissue Assessment Soft Tissue Mobility Assessment Tightness and discomfort with glute, piriformis, HS & ITB palpation Joint Mobility Assessment Joint Mobility Assessment greater trochanter equal; innominate L mild elevated and ant PT-OP-G Mobility & Gait Start: 07/21/18 17:49 Freq: Status: Active Protocol: Document 07/22/18 09:40 [facility] (Rec: 07/22/18 10:43 [facility] [id number]) OP Gait Assessment Comments Gait Comments Dec ant elevation & post depression B PT-OP-J Posture/Palpation/Skin Start: 07/21/18 17:49 Freq: Status: Active Protocol: Document 07/22/18 09:40 [facility] (Rec: 07/22/18 10:43 [facility] [id number]) Posture Evaluation [facility] Postural Classification System [place]ight Postural Classifications Vertical/Posterior Vertebral Compression Test 3 Elbow Flexion Test 3 Lumbar Protective Mechanism Left AP 5 Lumbar Protective Mechanism Right AP 4 Lumbar Protective Mechanism Left PA 2 Lumbar Protective Mechanism Right PA 3 Leg Swing Left Hard End Feel Limited Pain Leg Swing Right WNL PT-OP-L Special Tests Start: 07/21/18 17:49 Freq: Status: Active Protocol: Document 07/22/18 09:40 [facility] (Rec: 07/22/18 10:43 [facility] [id number]) Special Tests Lumbar Spine Special Tests Slump Test Results neg R and L positive Straight Leg Raise Test Results positive L; negative R PT-OP-M Strength Start: 07/21/18 17:49 Freq: Status: Active Protocol: Document 07/22/18 09:40 [facility] (Rec: 07/22/18 10:43 [facility] [id number]) Hip Strength Hip Manual Muscle Testing Right Flexion (L2) 5 Normal Extension (S1) 5 Normal Abduction 5 Normal Adduction 5 Normal External Rotation 5 Normal Internal Rotation 5 Normal Left Flexion (L2) 5 Normal Extension (S1) 4+ Good+ Abduction 4 Good Adduction 4+ Good+ External Rotation 4 Good Internal Rotation 4 Good Comments pain with IR/ER, add and abd & ext Knee Strength Knee Manual Muscle Testing Right Flexion (S2) 5 Normal Extension (L3) 5 Normal Left Flexion (S2) 4+ Good+ Extension (L3) 5 Normal Comments pain with flex Ankle/Foot Strength Ankle and Foot Manual Muscle Testing Right Dorsiflexion (L4) 5 Normal Plantarflexion (S1) 5 Normal Left Dorsiflexion (L4) 5 Normal Plantarflexion (S1) 5 Normal Comments pain in L butt & arch with PF PT-OP-Q Treatments Start: 12/10/18 17:49 Freq: Status: Active Protocol: Document 08/11/18 07:30 AMB (Rec: 08/11/18 16:39 AMB [email or web address]) Therapeutic Exercises Supine Exercises stretches Supine Exercise Name figure 4 and opposite knee to chest stretch Prone Exercises IR Prone Exercise Name IR with focus on neutral pelvis Side left Resistance PT resistance Reps/Minutes 10 ER Prone Exercise Name ER with focus on ant glide of femoral head Side left Resistance PT resistance Reps/Minutes 10 Sidelying Exercises 1 Sidelying Exercise Name side plank Comments modified kneel/forearm abd Sidelying Exercise Name hip abd against wall Side left Reps/Minutes 2x10 Manual Therapy Treatment Soft Tissue Mobilization 2 Body Location MFR over the piriformis and prox gluteal max on the left side Comments with manual stretch into IR/ ER Manual Traction long axis Details L long axis PT-OP-R Modalities Start: 07/21/18 17:49 Freq: Status: Active Protocol: Document 08/11/18 07:30 AMB (Rec: 08/11/18 16:39 AMB [email or web address]) Hot Pack/Cold Pack Treatment Cold Pack Location SI joint and and anterior left hip Patient Position Hooklying Treatment Duration (minutes) 10 PT-OP-T Assessment and Plan Start: 07/21/18 17:49 Freq: Status: Active Protocol: Document 08/11/18 07:30 AMB (Rec: 08/11/18 08:17 AMB [id number]) Physical Therapy Assessment Assessment Summary Assessment Pt is feeling improvement overall but extended sitting continues to exacerbate pain. Pt felt improvement after manual. Physical Therapy Plan Next Visit Focus/Plan Next Note Type Treatment Note Next Visit Plan manual on L pelvis/ IT band to improve mobility. Core/ pelvis stability progression.
--- NOTE | 2018-08-14 17:54 | PT.OTN ---
Physical Therapy Treatment Note PT-OP-A Visit Information Start: 07/21/18 17:49 Freq: Status: Active Protocol: Document 08/14/18 16:45 HH (Rec: 08/14/18 17:54 HH [email or web address]) Out-Patient Physical Therapy Visit Information Visit Information Visit Type Treatment Note Visit Start Time 16:45 Visit Stop Time 17:40 Total Visit Minutes 55 Visit Number 7/10 Number of DIRECTOR ENVIRONMENTAL Visits 0 PT-OP-B Current Condition Start: 07/21/18 17:49 Freq: Status: Active Protocol: Document 07/22/18 09:40 [facility] (Rec: 07/22/18 10:43 [facility] [id number]) Current Condition History of Current Condition Onset Date on and off since having kids Current Complaints pain into L buttocks History of Current Condition Pt reports she has been in an RV travelling since alf . Reports she sat a lot and reports it is tight in buttocks and HS. Reports this has happened on and off since having her kids. Pt has been starting to lift again since she came back but it isn't getting better. Pt reports hurts most at night or sedentary. Pt reports she has been able to go for walks and bike rides without issue. She is limited a little bit with lifting partially due to not doing it for a while & d/t pain. Treatment Goals Patient/Caregiver Goals Get program to manage pain & how to avoid making it worse. PT-OP-C Subjective Start: 07/21/18 17:49 Freq: Status: Active Protocol: Document 08/14/18 16:45 HH (Rec: 08/14/18 17:54 HH [email or web address]) OP-PT Subjective Patient Comments Patient Comments Pt reports her squat mobility improved since last week without any pain. She does c/o soreness after sitting for 3 hours yesterday but symptoms relived after figure 4 stretch PT-OP-F Manual Assessment Start: 07/21/18 17:49 Freq: Status: Active Protocol: Document 07/22/18 09:40 [facility] (Rec: 07/22/18 10:43 [facility] [id number]) Manual Assessments Soft Tissue Assessment Soft Tissue Mobility Assessment Tightness and discomfort with glute, piriformis, HS & ITB palpation Joint Mobility Assessment Joint Mobility Assessment greater trochanter equal; innominate L mild elevated and ant PT-OP-G Mobility & Gait Start: 07/21/18 17:49 Freq: Status: Active Protocol: Document 07/22/18 09:40 [facility] (Rec: 07/22/18 10:43 [facility] [id number]) OP Gait Assessment Comments Gait Comments Dec ant elevation & post depression B PT-OP-J Posture/Palpation/Skin Start: 07/21/18 17:49 Freq: Status: Active Protocol: Document 07/22/18 09:40 [facility] (Rec: 07/22/18 10:43 [facility] [id number]) Posture Evaluation [facility] Postural Classification System [facility] Postural Classifications Vertical/Posterior Vertebral Compression Test 3 Elbow Flexion Test 3 Lumbar Protective Mechanism Left AP 5 Lumbar Protective Mechanism Right AP 4 Lumbar Protective Mechanism Left PA 2 Lumbar Protective Mechanism Right PA 3 Leg Swing Left Hard End Feel Limited Pain Leg Swing Right WNL PT-OP-L Special Tests Start: 07/21/18 17:49 Freq: Status: Active Protocol: Document 07/22/18 09:40 [facility] (Rec: 07/22/18 10:43 [facility] [id number]) Special Tests Lumbar Spine Special Tests Slump Test Results neg R and L positive Straight Leg Raise Test Results positive L; negative R PT-OP-M Strength Start: 07/21/18 17:49 Freq: Status: Active Protocol: Document 07/22/18 09:40 [facility] (Rec: 07/22/18 10:43 [facility] [id number]) Hip Strength Hip Manual Muscle Testing Right Flexion (L2) 5 Normal Extension (S1) 5 Normal Abduction 5 Normal Adduction 5 Normal External Rotation 5 Normal Internal Rotation 5 Normal Left Flexion (L2) 5 Normal Extension (S1) 4+ Good+ Abduction 4 Good Adduction 4+ Good+ External Rotation 4 Good Internal Rotation 4 Good Comments pain with IR/ER, add and abd & ext Knee Strength Knee Manual Muscle Testing Right Flexion (S2) 5 Normal Extension (L3) 5 Normal Left Flexion (S2) 4+ Good+ Extension (L3) 5 Normal Comments pain with flex Ankle/Foot Strength Ankle and Foot Manual Muscle Testing Right Dorsiflexion (L4) 5 Normal Plantarflexion (S1) 5 Normal Left Dorsiflexion (L4) 5 Normal Plantarflexion (S1) 5 Normal Comments pain in L butt & arch with PF PT-OP-Q Treatments Start: 07/21/18 17:49 Freq: Status: Active Protocol: Document 08/14/18 16:45 HH (Rec: 08/14/18 17:54 HH [email or web address]) Therapeutic Exercises Other Exercises squat with wedge under medial calcaneous Equipment Used with towel as a wedge Reps/Minutes 8 reps x 2 squat with hip ER and ankle supination Resistance body weight Reps/Minutes 8 reps x 2 bird dog L hip ext with toe out Reps/Minutes 8 rep x 2 Comments toe out Manual Therapy Treatment Soft Tissue Mobilization L ant tib and post tib Mobilization Type Cross-Friction Myofascial Release Intensity/Depth Moderate Body Position Supine 2 Body Location MFR over the piriformis and prox gluteal max on the left side Comments with manual stretch into IR/ ER Neuro Re-Education Treatment Other Activities squat with manual resistance on L hip ER Reps/Duration 10 mins Comments squat with manual resistance on L knee PT-OP-R Modalities Start: 07/21/18 17:49 Freq: Status: Active Protocol: Document 08/11/18 07:30 AMB (Rec: 08/11/18 16:39 AMB [email or web address]) Hot Pack/Cold Pack Treatment Cold Pack Location SI joint and and anterior left hip Patient Position Hooklying Treatment Duration (minutes) 10 PT-OP-T Assessment and Plan Start: 07/21/18 17:49 Freq: Status: Active Protocol: Document 08/14/18 16:45 HH (Rec: 08/14/18 17:54 HH [email or web address]) Physical Therapy Assessment Assessment Summary Assessment Pt demonstrates increased squat mobility (able to reach bottom) without pain. However, she does have tight sensation on and off during squat at L ant tib and calf. pt demonstrates increased L rearfoot pronation during squat assessment. Pt reports pain free after manual therapy at L ant tib and post tib followed by resisted L ankle inversion. PT education on knees and ankles out body mechanics during squatting activities to facilitate gluteal engagement. New HEP for her 3 months vacation will be given on next visit. Physical Therapy Plan Next Visit Focus/Plan Next Note Type Treatment Note Next Visit Plan New HEP for her 3 month vacation for next visit. cont ex as shilpa to increase gluteal activation (foot glove turner and former automatic during hip ext) and L ankle inversion exercise .
--- NOTE | 2018-08-18 13:35 | PT.OTN ---
Physical Therapy Treatment Note PT-OP-A Visit Information Start: 07/21/18 17:49 Freq: Status: Active Protocol: Document 08/18/18 08:15 AMB (Rec: 08/18/18 13:34 AMB [email or web address]) Out-Patient Physical Therapy Visit Information Visit Information Visit Type Discharge Summary Visit Start Time 08:15 Visit Stop Time 09:00 Total Visit Minutes 45 Visit Number 8 PT-OP-B Current Condition Start: 07/21/18 17:49 Freq: Status: Active Protocol: Document 07/22/18 09:40 [facility] (Rec: 07/22/18 10:43 [facility] [id number]) Current Condition History of Current Condition Onset Date on and off since having kids Current Complaints pain into L buttocks History of Current Condition Pt reports she has been in an RV travelling since alf . Reports she sat a lot and reports it is tight in buttocks and HS. Reports this has happened on and off since having her kids. Pt has been starting to lift again since she came back but it isn't getting better. Pt reports hurts most at night or sedentary. Pt reports she has been able to go for walks and bike rides without issue. She is limited a little bit with lifting partially due to not doing it for a while & d/t pain. Treatment Goals Patient/Caregiver Goals Get program to manage pain & how to avoid making it worse. PT-OP-C Subjective Start: 07/21/18 17:49 Freq: Status: Active Protocol: Document 08/18/18 08:15 AMB (Rec: 08/18/18 13:34 AMB [email or web address]) OP-PT Subjective Patient Comments Patient Comments Pt overall feels like her stability is much better. She continues to have symptoms that can radiate down the length of her leg from both extended sitting and sleeping on her side, but she feels like she has a plan. She is going down to [place], so we will discharge her today. PT-OP-F Manual Assessment Start: 07/21/18 17:49 Freq: Status: Active Protocol: Document 07/22/18 09:40 [facility] (Rec: 07/22/18 10:43 [facility] [id number]) Manual Assessments Soft Tissue Assessment Soft Tissue Mobility Assessment Tightness and discomfort with glute, piriformis, HS & ITB palpation Joint Mobility Assessment Joint Mobility Assessment greater trochanter equal; innominate L mild elevated and ant PT-OP-G Mobility & Gait Start: 07/21/18 17:49 Freq: Status: Active Protocol: Document 07/22/18 09:40 [facility] (Rec: 07/22/18 10:43 [facility] [id number]) OP Gait Assessment Comments Gait Comments Dec ant elevation & post depression B PT-OP-J Posture/Palpation/Skin Start: 07/21/18 17:49 Freq: Status: Active Protocol: Document 07/22/18 09:40 [facility] (Rec: 07/22/18 10:43 [facility] [id number]) Posture Evaluation [facility] Postural Classification System [place]ight Postural Classifications Vertical/Posterior Vertebral Compression Test 3 Elbow Flexion Test 3 Lumbar Protective Mechanism Left AP 5 Lumbar Protective Mechanism Right AP 4 Lumbar Protective Mechanism Left PA 2 Lumbar Protective Mechanism Right PA 3 Leg Swing Left Hard End Feel Limited Pain Leg Swing Right WNL PT-OP-L Special Tests Start: 07/21/18 17:49 Freq: Status: Active Protocol: Document 07/22/18 09:40 [facility] (Rec: 07/22/18 10:43 [facility] [id number]) Special Tests Lumbar Spine Special Tests Slump Test Results neg R and L positive Straight Leg Raise Test Results positive L; negative R PT-OP-M Strength Start: 07/21/18 17:49 Freq: Status: Active Protocol: Document 07/22/18 09:40 [facility] (Rec: 07/22/18 10:43 [facility] [id number]) Hip Strength Hip Manual Muscle Testing Right Flexion (L2) 5 Normal Extension (S1) 5 Normal Abduction 5 Normal Adduction 5 Normal External Rotation 5 Normal Internal Rotation 5 Normal Left Flexion (L2) 5 Normal Extension (S1) 4+ Good+ Abduction 4 Good Adduction 4+ Good+ External Rotation 4 Good Internal Rotation 4 Good Comments pain with IR/ER, add and abd & ext Knee Strength Knee Manual Muscle Testing Right Flexion (S2) 5 Normal Extension (L3) 5 Normal Left Flexion (S2) 4+ Good+ Extension (L3) 5 Normal Comments pain with flex Ankle/Foot Strength Ankle and Foot Manual Muscle Testing Right Dorsiflexion (L4) 5 Normal Plantarflexion (S1) 5 Normal Left Dorsiflexion (L4) 5 Normal Plantarflexion (S1) 5 Normal Comments pain in L butt & arch with PF PT-OP-Q Treatments Start: 07/21/18 17:49 Freq: Status: Active Protocol: Document 08/18/18 08:15 AMB (Rec: 08/18/18 13:34 AMB [email or web address]) Therapeutic Exercises Supine Exercises 2 Supine Exercise Name 3-way hasmstring, groin, IT band Reps/Minutes 30x3 1 Supine Exercise Name active hamstring Reps/Minutes 30x2 stretches Supine Exercise Name figure 4 and opposite knee to chest stretch Sidelying Exercises 1 Sidelying Exercise Name side plank Comments modified kneel/forearm abd Sidelying Exercise Name hip abd against wall Side left Reps/Minutes 2x10 Manual Therapy Treatment Soft Tissue Mobilization 2 Body Location MFR over the piriformis and prox gluteal max on the left side Comments with manual stretch into IR/ ER Manual Traction long axis Details L long axis PT-OP-R Modalities Start: 07/21/18 17:49 Freq: Status: Active Protocol: Document 08/11/18 07:30 AMB (Rec: 08/11/18 16:39 AMB [email or web address]) Hot Pack/Cold Pack Treatment Cold Pack Location SI joint and and anterior left hip Patient Position Hooklying Treatment Duration (minutes) 10 PT-OP-T Assessment and Plan Start: 07/21/18 17:49 Freq: Status: Active Protocol: Document 08/18/18 08:15 AMB (Rec: 08/18/18 13:34 AMB [email or web address]) Physical Therapy Assessment Goals posture Short Term Goal (STG) Pt will be able to demonstate good sleeping & sitting posture. PROGRESS MADE STG Duration 08/23/18 strength Impairment strength Short Term Goal (STG) Pt will be indep with HEP. STG Duration MET Lining Setter Goal (LTG) Pt will demonstate improved strength with grossly 4+/5 strength on L and 4/5 with VCT , EFT and LPM testing. LTG Duration MET Assessment Summary Assessment Pt overall feels that she is doing better, although extended sitting continues to cause sx. Pt to work on HEP independently and then can return if needed with a new prescription. Physical Therapy Plan Discharge Physical Therapy Discharge Reasons Patient Request
== END 2018-08-18 10:15 ==
LOC: PHYS 08:15
PROVIDERS: Family Provider Family Medicine; PCP Family Medicine; Visit Provider Family Medicine
DX: M62.838 Other muscle spasm (principal)
CPT/HCPCS: 97010; 97110; 97140; 97162

== ENCOUNTER → 2019-05-05 15:09 | Outpatient (CLI) | payer MEDICARE, OTHER, SELFPAY | PROVIDERS: PCP Family Medicine | DX: Z23 Encounter for immunization (principal) | CPT/HCPCS: 90471; 90662 ==

== ENCOUNTER → 2019-07-15 10:56 | Outpatient (CLI) | payer MEDICARE, OTHER, SELFPAY ==
--- NOTE | 2019-07-15 | DI.MG.S_ITS ---
BILATERAL DIGITAL SCREENING MAMMOGRAM 3D/2D WITH CAD: 07/15/2019 CLINICAL: Routine screening. Family history of breast cancer. Comparison is made to exams dated: 07/14/2018 mammogram, 07/09/2017 mammogram, and 07/03/2016 mammogram - [facility]. The tissue of both breasts is heterogeneously dense. This may lower the sensitivity of mammography. Current study was also evaluated with a Computer Aided Detection (CAD) system. No significant masses, calcifications, or other findings are seen in either breast. There has been no significant interval change. IMPRESSION: NEGATIVE There is no mammographic evidence of malignancy. A 1 year screening mammogram is recommended. This exam was interpreted at Station ID: [id number]. NOTE: For mammograms, a report in lay terms will be sent to the patient. Approximately 15% of breast malignancies will not be visualized mammographically. In the management of a palpable breast mass, a negative mammogram must not discourage biopsy of a clinically suspicious lesion. Electronically Signed By: Deonte woodall/nilda:07/15/2019 11:56:59 letter sent: Normal Exam ACR BI-RADS Category 1: Negative [id number]
== END ==
PROVIDERS: PCP Family Medicine; Visit Provider Family Medicine
DX: Z12.31 Encounter for screening mammogram for malignant neoplasm of breast (principal); Z80.3 Family history of malignant neoplasm of breast
CPT/HCPCS: 77063; 77067

== ENCOUNTER → 2019-07-17 07:40 | Outpatient (CLI) | payer MEDICARE, OTHER, SELFPAY ==
[2019-07-17 08:17] LABS: Add Manual Diff / Slide Review NO; Basophils Absolute Auto 100 /uL (0-100); Eosinophils Absolute Auto 100 /uL (0-450); Eosinophils Percent Auto 2.2 % (2-4); Hematocrit 42.5 % (36-46); Hemoglobin 14.4 g/dL (12.0-16.0); Lymphocytes Absolute Auto 1400 /uL (1100-4500); Lymphocytes Percent Auto 29.3 % (25-40); Mean Corpuscular Hemoglobin 32.3 PG (26-34); Monocytes Absolute Auto 500 /uL (0-900); Monocytes Percent Auto 9.3 % (3-14); Neutrophils Absolute Auto 2900 /uL (1500-7000); Neutrophils Percent Auto 58.2 % (50-75); Platelet Count 237 X10^3/uL (150-400); Red Blood Cell Count 4.48 X10^6/uL (4.0-5.2); Red Cell Distribution Width 13.1 % (11.6-14.8); White Blood Cell Count 4.9 X10^3/uL (4.5-11.0)
[2019-07-17 09:29] LABS: Alanine Aminotransferase 26 IU/L (<35); Albumin 4.3 g/dL (3.5-5.0); Alkaline Phosphatase 45 U/L (38-126); Aspartate Aminotransferase 29 IU/L (14-36); BUN Creatinine Ratio 26.7 (6-22); Bilirubin Total 0.7 mg/dL (0.2-1.3); Blood Urea Nitrogen 16 mg/dL (7-17); Calcium 9.2 mg/dL (8.4-10.2); Carbon Dioxide 30 mmol/L (22-32); Chloride 102 mmol/L (98-107); Cholesterol 213 mg/dL (140-199); Estimated Glomerular Filt Rate > 60.0 mL/min (>60); Globulin 2.1 g/dL (1.7-4.1); Glucose 95 mg/dL (80-110); HDL Cholesterol 80 mg/dL (40-60); HEMOLYSIS < 15 (0-50); LDL Cholesterol Calculated 119 mg/dL (<100); Potassium 4.2 mmol/L (3.4-5.1); Sodium 136 mmol/L (137-145); Total Protein 6.4 g/dL (6.3-8.2); Triglycerides 70 mg/dL (35-150); VLDL Cholesterol Calculated 14 mg/dL (2-30)
[2019-07-17 09:56] LABS: TSH w/ Reflex to FT4 1.48 uIU/mL (0.47-4.68)
== END ==
PROVIDERS: PCP Family Medicine; Visit Provider Family Medicine
DX: Z13.6 Encounter for screening for cardiovascular disorders (principal)
CPT/HCPCS: 36415; 80053; 80061; 84443; 85025

== ENCOUNTER 2019-09-24 08:30 | Outpatient (RCR) | payer MEDICARE, OTHER, SELFPAY ==
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
== END 2020-04-25 13:35 ==
LOC: OT 08:30
PROVIDERS: PCP Family Medicine; Visit Provider Family Medicine
DX: M79.645 Pain in left finger(s) (principal)
CPT/HCPCS: 97110; 97165; 97530

== ENCOUNTER → 2020-05-24 07:32 | Outpatient (CLI) | payer MEDICARE, OTHER, SELFPAY | PROVIDERS: PCP Family Medicine; Referring Provider Internal Medicine; Visit Provider Internal Medicine | DX: Z23 Encounter for immunization (principal) | CPT/HCPCS: 90471; 90662 ==

== ENCOUNTER → 2020-07-21 10:15 | Outpatient (CLI) | payer MEDICARE, OTHER, SELFPAY ==
--- NOTE | 2020-07-21 | DI.MG.S_ITS ---
BILATERAL DIGITAL SCREENING MAMMOGRAM 3D/2D WITH CAD: 07/21/2020 CLINICAL: Routine screening. Family history of breast cancer. Comparison is made to exams dated: 07/15/2019 mammogram, 07/14/2018 mammogram, and 07/09/2017 mammogram - [facility]. The tissue of both breasts is heterogeneously dense. This may lower the sensitivity of mammography. Current study was also evaluated with a Computer Aided Detection (CAD) system. No significant masses, calcifications, or other findings are seen in either breast. There has been no significant interval change. IMPRESSION: NEGATIVE There is no mammographic evidence of malignancy. A 1 year screening mammogram is recommended. This exam was interpreted at Station ID: [id number]. NOTE: For mammograms, a report in lay terms will be sent to the patient. Approximately 15% of breast malignancies will not be visualized mammographically. In the management of a palpable breast mass, a negative mammogram must not discourage biopsy of a clinically suspicious lesion. Electronically Signed By: Radah martinez/nilda:07/21/2020 11:50:24 letter sent: Normal Exam ACR BI-RADS Category 1: Negative 3341F
== END ==
PROVIDERS: PCP Family Medicine; Referring Provider Family Medicine; Visit Provider Family Medicine
DX: Z12.31 Encounter for screening mammogram for malignant neoplasm of breast (principal); Z80.3 Family history of malignant neoplasm of breast
CPT/HCPCS: 77063; 77067

== ENCOUNTER → 2020-07-28 15:07 | Outpatient (CLI) | payer MEDICARE, OTHER, SELFPAY | PROVIDERS: PCP Family Medicine; Referring Provider Family Medicine; Visit Provider Family Medicine | DX: Z13.820 Encounter for screening for osteoporosis (principal); M85.852 Other specified disorders of bone density and structure, left thigh; Z78.0 Asymptomatic menopausal state; Z82.62 Family history of osteoporosis | CPT/HCPCS: 77080 ==

== ENCOUNTER → 2020-07-29 07:43 | Outpatient (CLI) | payer MEDICARE, OTHER, SELFPAY ==
[2020-07-29 08:26] LABS: Add Manual Diff / Slide Review NO; Basophils Absolute Auto 100 /uL (0-100); Basophils Percent Auto 0.9 % (0-2); Eosinophils Absolute Auto 100 /uL (0-450); Eosinophils Percent Auto 2.1 % (2-4); Hematocrit 43.1 % (36-46); Hemoglobin 14.3 g/dL (12.0-16.0); Lymphocytes Absolute Auto 1600 /uL (1100-4500); Lymphocytes Percent Auto 25.8 % (25-40); Mean Corpuscular HGB Conc 33.2 % (30-36); Mean Corpuscular Hemoglobin 31.7 PG (26-34); Mean Corpuscular Volume 95.5 fL (80-100); Monocytes Absolute Auto 500 /uL (0-900); Monocytes Percent Auto 8.2 % (3-14); Neutrophils Absolute Auto 3900 /uL (1500-7000); Platelet Count 249 X10^3/uL (150-400); Red Blood Cell Count 4.51 X10^6/uL (4.0-5.2); Red Cell Distribution Width 13.2 % (11.6-14.8); White Blood Cell Count 6.2 X10^3/uL (4.5-11.0)
[2020-07-29 09:01] LABS: Alanine Aminotransferase 39 IU/L (<35); Albumin 4.2 g/dL (3.5-5.0); Albumin Globulin Ratio 1.7 (1.0-2.8); Alkaline Phosphatase 59 U/L (38-126); Aspartate Aminotransferase 29 IU/L (14-36); BUN Creatinine Ratio 24.2 (6-22); Bilirubin Total 0.7 mg/dL (0.2-1.3); Blood Urea Nitrogen 15 mg/dL (7-17); Calcium 9.6 mg/dL (8.4-10.2); Carbon Dioxide 32 mmol/L (22-32); Chloride 104 mmol/L (98-107); Cholesterol 247 mg/dL (140-199); Estimated Glomerular Filt Rate > 60.0 mL/min (>60); Globulin 2.5 g/dL (1.7-4.1); Glucose 104 mg/dL (80-110); HDL Cholesterol 96 mg/dL (40-60); HEMOLYSIS < 15 (0-50); LDL Cholesterol Calculated 132 mg/dL (<100); Potassium 4.4 mmol/L (3.4-5.1); Sodium 136 mmol/L (137-145); Total Protein 6.7 g/dL (6.3-8.2); Triglycerides 97 mg/dL (35-150)
[2020-07-29 09:33] LABS: TSH w/ Reflex to FT4 1.15 uIU/mL (0.47-4.68)
== END ==
PROVIDERS: PCP Family Medicine; Referring Provider Family Medicine; Visit Provider Family Medicine
DX: Z13.6 Encounter for screening for cardiovascular disorders (principal); N95.1 Menopausal and female climacteric states; E78.5 Hyperlipidemia, unspecified; M77.01 Medial epicondylitis, right elbow; M79.645 Pain in left finger(s)
CPT/HCPCS: 36415; 80053; 80061; 84443; 85025

== ENCOUNTER → 2020-09-02 07:55 | Outpatient (CLI) | payer MEDICARE, OTHER, SELFPAY ==
[2020-09-02] MEDS: COVID-19 VACC #1, MRNA(MOD) 100 MCG/0.5 ML VIAL IM (07:58)
== END ==
PROVIDERS: PCP Family Medicine; Visit Provider Internal Medicine
DX: Z23 Encounter for immunization (principal)
CPT/HCPCS: 0011A; 91301

== ENCOUNTER → 2020-09-30 07:57 | Outpatient (CLI) | payer MEDICARE, OTHER, SELFPAY ==
[2020-09-30] MEDS: COVID-19 VACC #2, MRNA(MOD) 100 MCG/0.5 ML VIAL IM (07:59)
== END ==
PROVIDERS: PCP Family Medicine; Visit Provider Internal Medicine
DX: Z23 Encounter for immunization (principal)
CPT/HCPCS: 0012A; 91301

== ENCOUNTER → 2020-12-30 08:11 | Outpatient (CLI) | payer MEDICARE, OTHER, SELFPAY ==
[2020-12-30 09:44] LABS: Alanine Aminotransferase 22 IU/L (<35); Albumin 4.2 g/dL (3.5-5.0); Albumin Globulin Ratio 1.9 (1.0-2.8); Alkaline Phosphatase 60 U/L (38-126); Aspartate Aminotransferase 27 IU/L (14-36); BUN Creatinine Ratio 19.6 (6-22); Bilirubin Total 0.6 mg/dL (0.2-1.3); Blood Urea Nitrogen 11 mg/dL (7-17); Calcium 9.7 mg/dL (8.4-10.2); Carbon Dioxide 28 mmol/L (22-32); Chloride 105 mmol/L (98-107); Cholesterol 198 mg/dL (140-199); Estimated Glomerular Filt Rate > 60.0 mL/min (>60); Globulin 2.2 g/dL (1.7-4.1); Glucose 99 mg/dL (80-110); HDL Cholesterol 94 mg/dL (40-60); HEMOLYSIS < 15 (0-50); LDL Cholesterol Calculated 92 mg/dL (<100); Potassium 4.7 mmol/L (3.4-5.1); Sodium 136 mmol/L (137-145); Total Protein 6.4 g/dL (6.3-8.2); Triglycerides 58 mg/dL (35-150)
== END ==
PROVIDERS: PCP Family Medicine; Referring Provider Family Medicine; Visit Provider Family Medicine
DX: E78.5 Hyperlipidemia, unspecified (principal)
CPT/HCPCS: 36415; 80053; 80061

== ENCOUNTER → 2021-07-24 15:42 | Outpatient (CLI) | payer MEDICARE, OTHER, SELFPAY ==
--- NOTE | 2021-07-24 | DI.MG.S_ITS ---
BILATERAL DIGITAL SCREENING MAMMOGRAM 3D/2D WITH CAD: 07/24/2021 CLINICAL: Routine screening. Family history of breast cancer. Comparison is made to exams dated: 07/21/2020 mammogram, 07/15/2019 mammogram, and 07/14/2018 mammogram - [facility]. The tissue of both breasts is heterogeneously dense. This may lower the sensitivity of mammography. Current study was also evaluated with a Computer Aided Detection (CAD) system. No significant masses, calcifications, or other findings are seen in either breast. There has been no significant interval change. IMPRESSION: NEGATIVE There is no mammographic evidence of malignancy. A 1 year screening mammogram is recommended. This exam was interpreted at Station ID: [id number]. NOTE: For mammograms, a report in lay terms will be sent to the patient. Approximately 15% of breast malignancies will not be visualized mammographically. In the management of a palpable breast mass, a negative mammogram must not discourage biopsy of a clinically suspicious lesion. Electronically Signed By: Calos Pitts acr/nilda:07/24/2021 16:14:58 letter sent: Normal Exam ACR BI-RADS Category 1: Negative [id number]
== END ==
PROVIDERS: PCP Family Medicine; Referring Provider Family Medicine; Visit Provider Family Medicine
DX: Z12.31 Encounter for screening mammogram for malignant neoplasm of breast (principal); Z80.3 Family history of malignant neoplasm of breast
CPT/HCPCS: 77063; 77067

== ENCOUNTER → 2021-07-25 06:51 | Outpatient (CLI) | payer MEDICARE, OTHER, SELFPAY ==
[2021-07-25 09:17] LABS: Add Manual Diff / Slide Review NO; Basophils Absolute Auto 100 /uL (0-100); Basophils Percent Auto 1.2 % (0-2); Eosinophils Absolute Auto 200 /uL (0-450); Eosinophils Percent Auto 3.2 % (2-4); Lymphocytes Absolute Auto 1700 /uL (1100-4500); Lymphocytes Percent Auto 29.9 % (25-40); Mean Corpuscular HGB Conc 34.1 % (30-36); Mean Corpuscular Volume 93.7 fL (80-100); Monocytes Absolute Auto 500 /uL (0-900); Monocytes Percent Auto 9.4 % (3-14); Neutrophils Absolute Auto 3100 /uL (1500-7000); Neutrophils Percent Auto 56.3 % (50-75); Platelet Count 263 X10^3/uL (150-400); Red Blood Cell Count 4.37 X10^6/uL (4.0-5.2); Red Cell Distribution Width 13.2 % (11.6-14.8); White Blood Cell Count 5.6 X10^3/uL (4.5-11.0)
[2021-07-25 09:54] LABS: Alanine Aminotransferase 25 IU/L (<35); Albumin 4.3 g/dL (3.5-5.0); Albumin Globulin Ratio 1.9 (1.0-2.8); Alkaline Phosphatase 56 U/L (38-126); Aspartate Aminotransferase 26 IU/L (14-36); BUN Creatinine Ratio 26.2 (6-22); Bilirubin Total 0.8 mg/dL (0.2-1.3); Blood Urea Nitrogen 16 mg/dL (7-17); Calcium 9.2 mg/dL (8.4-10.2); Carbon Dioxide 29 mmol/L (22-32); Chloride 104 mmol/L (98-107); Cholesterol 211 mg/dL (140-199); Estimated Glomerular Filt Rate > 60.0 mL/min (>60); Globulin 2.3 g/dL (1.7-4.1); Glucose 97 mg/dL (80-110); HDL Cholesterol 93 mg/dL (40-60); HEMOLYSIS < 15 (0-50); LDL Cholesterol Calculated 105 mg/dL (<100); Potassium 3.9 mmol/L (3.4-5.1); Sodium 137 mmol/L (137-145); Total Protein 6.6 g/dL (6.3-8.2); Triglycerides 65 mg/dL (35-150); VLDL Cholesterol Calculated 13 mg/dL (2-30)
[2021-07-25 10:30] LABS: Thyroid Stimulating Hormone 1.53 uIU/mL (0.47-4.68)
== END ==
PROVIDERS: PCP Family Medicine; Referring Provider Family Medicine; Visit Provider Family Medicine
DX: E78.5 Hyperlipidemia, unspecified (principal)
CPT/HCPCS: 36415; 80053; 80061; 84443; 85025

== ENCOUNTER 2021-09-22 09:45 | Outpatient (RCR) | payer MEDICARE, OTHER, SELFPAY ==
--- NOTE | 2021-09-01 15:15 | PT.OIE ---
Current Diagnoses Stiffness of right ankle, not elsewhere classified (09/01/21) Other synovitis and tenosynovitis, unspecified ankle and foot (09/01/21) Sprain of other ligament of right ankle, subsequent encounter (09/01/21) Visit Care Team Role Provider Type Zara Ragland MD Attending Provider Physician Primary Care Provider Referring Provider Specialty: [facility] Address: [address] [place] [address], [facility] [place], [facility] Email: [email or web address] Physical Therapy Initial Evaluation PT-OP-A Visit Information Start: 09/01/21 15:47 Freq: Status: Active Protocol: Document 09/01/21 14:30 DCW (Rec: 09/01/21 16:01 DCW [id number]) Out-Patient Physical Therapy Visit Information Visit Information Visit Type Initial Evaluation Visit Start Time 14:30 Visit Stop Time 15:15 Total Visit Minutes 45 Visit Number 1 Number of WATCH GUARD GATE Visits 0 Evaluation Information Evaluation Date 09/01/21 PT-OP-B Current Condition Start: 09/01/21 15:47 Freq: Status: Active Protocol: Document 09/01/21 14:30 DCW (Rec: 09/01/21 16:01 DCW [id number]) Current Condition History of Current Condition Onset Date Three month history Current Complaints Right ankle and lateral lower leg pain History of Current Condition Pt is a 70 year old female presenting with a three month history of right ankle and lower leg pain. Pt reports that last May, her young granddaughter was running inbetween her legs, and as she slid her legs apart, her socks slipped on the floor, her legs went too far apart, and she heard a popping sound on her right lateral leg. Since that time, pt has been experiencing varying levels of pain in her ankle and along her lateral lower leg. Notes she is able to participate in hiking and yoga, but does notice increased soreness, especially if she wears less supportive shoes. Wearing higher hiking boots seems to help quite a bit. Notes her leg was feeling really irritated during the last few miles when hiking earlier this week. Also notes that she has a history of right knee injuries, including osteoarthritis and a torn meniscus. PT-OP-C Subjective Start: 09/01/21 15:47 Freq: Status: Active Protocol: Document 09/01/21 14:30 DCW (Rec: 09/01/21 16:01 DCW [id number]) OP-PT Subjective Patient Comments Patient Comments I've been using K-T tape on my knee, and I really like it. It seems to work a lot better than a brace. I couldn't figure out a way to get it to work on my ankle though. Patient Reported Progress Improving Patient Questionnaires Foot & Ankle Ability Measure- ADL and Sports FAAM-ADL Score 83.33% Lower Extremity Functional Scale LEFS Score 73/80 = 91.25% LEFS Impairment 1 to 19% Impaired (Score 63-79 ) OP-PT Pain Assessment Pain Assessment Grid Paper Pain Assessment Grid Completed Yes Location Right Lower Lateral Leg Intensity 3 Scale Used Numeric (0 - 10) PT-OP-D Balance Start: 09/01/21 15:47 Freq: Status: Active Protocol: Document 09/01/21 14:30 DCW (Rec: 09/04/21 10:12 DCW [id number]) Balance Tests Single Limb Standing Single Limb- Right 20 - increased wobble/ instability Single Limb- Left 45+ PT-OP-F Manual Assessment Start: 09/01/21 15:47 Freq: Status: Active Protocol: Document 09/01/21 14:30 DCW (Rec: 09/04/21 10:12 DCW [id number]) Manual Assessments Soft Tissue Assessment Soft Tissue Mobility Assessment Increased tone with tenderness to palpation 2/4: pain with wincing along right peronals. Joint Mobility Assessment Joint Mobility Assessment Mild instability with right ankle anterior draw PT-OP-G Mobility & Gait Start: 09/01/21 15:47 Freq: Status: Active Protocol: Document 09/01/21 14:30 DCW (Rec: 09/04/21 10:12 DCW [id number]) OP Gait Assessment Gait Gait Assistance Required: Independent Assistive Devices Assistive Device None Gait Deviations General Gait Pattern Within Normal Limits Stair Climbing Evaluation Evaluation Level of Assist On Stairs Independent Devices Stair Climbing Assistive Devices None Technique/Endurance Stair Climbing Direction Ascend and Descend Stair Climbing Technique Step Over Step PT-OP-K Range of Motion Start: 09/01/21 15:47 Freq: Status: Active Protocol: Document 09/01/21 14:30 DCW (Rec: 09/04/21 10:12 DCW [id number]) Ankle and Foot Goniometric Range of Motion Ankle and Foot Right Active Testing Position Sitting Dorsiflexion with Knee Flexed 10 Dorsiflexion with Knee Extended 5 Plantarflexion 50 Inversion 40 Eversion 10 Left Active Testing Position Sitting Dorsiflexion with Knee Flexed 15 Dorsiflexion with Knee Extended 10 Plantarflexion 55 Inversion 35 Eversion 20 PT-OP-L Special Tests Start: 09/01/21 15:47 Freq: Status: Active Protocol: Document 09/01/21 14:30 DCW (Rec: 09/04/21 10:12 DCW [id number]) Special Tests Foot/Ankle Special Tests Peroneal Subluxation Test Results Negative Anterior Draw Test Results Mild laxity R PT-OP-M Strength Start: 09/01/21 15:47 Freq: Status: Active Protocol: Document 09/01/21 14:30 DCW (Rec: 09/04/21 10:12 DCW [id number]) Ankle/Foot Strength Ankle and Foot Manual Muscle Testing Right Dorsiflexion (L4) 5 Normal Plantarflexion (S1) 5 Normal Inversion 5 Normal Eversion (S1) 5 Normal Comments Pain with resisted eversion Left Dorsiflexion (L4) 5 Normal Plantarflexion (S1) 5 Normal Inversion 5 Normal Eversion (S1) 5 Normal PT-OP-Q Treatments Start: 09/01/21 15:47 Freq: Status: Active Protocol: Document 09/01/21 14:30 DCW (Rec: 09/01/21 16:59 DCW [id number]) Therapeutic Exercises Sitting Exercises 1 Sitting Exercise Name 4-way ankle flexion Side right Resistance Lv 3 Equipment Used T-band PT-OP-T Assessment and Plan Start: 09/01/21 15:47 Freq: Status: Active Protocol: Document 09/01/21 14:30 DCW (Rec: 09/01/21 16:59 DCW [id number]) Physical Therapy Assessment Rehab Potential Rehabilitation Potential Excellent Evaluation Complexity Number of Personal Factors/Comorbidities 0 Number of Body Systems Impaired 1-2 Clinical Presentation at Evaluation Stable Impairments Impairments Functional Activities, Functional Mobility,Pain,ROM, Soft Tissue Mobility,Tone Goals Two Impairment Pt unable to stand R SLS >10 seconds due to ankle instability Longterm Goal (LTG) Pt to demonstrate improved joint stability by standing R SLS for 30+ seconds in order to improve ability to participate in hiking [place]. LTG Duration 10/30/21 One Impairment Pt does not have an appropriate home Exercise Program Short Term Goal (STG) Pt to be independent and compliant with an appropriate HEP STG Duration 10/02/21 Assessment Summary Assessment Pt presents with signs and symptoms consistent with a likely right ATF ligamentous strain, which then may have also led to inflammation of her peronus brevis/longus and entensor digitorum tendons, which were likely acting as stabilizers as she continued doing hiking and yoga. Pt shows some pain and stiffness with her right ankle mobility, but at this time is ambulating WNL, and her pain is not preventing any activities. Pt will likely benefit from gentle ankle strengthening, as well as ice and rest for her inflamed tendons. Discussed with pt HEP , and pt is very self- motivated to perform all necessary HEP and any instructions to help return her to normal activities. Pt will likely do very well with independent HEP with occasional additional direction from Physical Therapist. Pt should return for follow-up in next 3-4 weeks after performing HEP at regular intervals. Physical Therapy Plan Frequency and Duration Frequency of Treatment 1 every 3-4 weeks Duration of Treatment Two months Plan of Care Start Date 09/01/21 Plan of Care End Date 10/30/21 Therapeutic Interventions Therapeutic Interventions Aquatic Therapy,Balance Training,Gait Training,Home Exercise Program,Joint Mobilizations,Manual Therapy, Neuromuscular Re-education, Patient/Caregiver Education, Self-Care/Home Management,Soft Tissue Mobilization,Taping, Therapeutic Activities, Therapeutic Exercises Next Visit Focus/Plan Next Note Type Treatment Note Next Visit Plan Advance HEP, STM to [place]
--- NOTE | 2021-09-01 15:15 | PT.OPPOC ---
Physical, Occupational & Speech Therapy At [facility] Current Diagnoses Stiffness of right ankle, not elsewhere classified (09/01/21) Other synovitis and tenosynovitis, unspecified ankle and foot (09/01/21) Sprain of other ligament of right ankle, subsequent encounter (09/01/21) Visit Care Team Role Provider Type Zara Ragland MD Attending Provider Physician Primary Care Provider Referring Provider Specialty: [facility] Address: [address] [place] [address] [place], [address] Email: Plan Of Care PT-OP-T Assessment and Plan Start: 09/01/21 15:47 Freq: Status: Active Protocol: Document 09/01/21 14:30 DCW (Rec: 09/01/21 16:59 DCW [id number]) Physical Therapy Assessment Rehab Potential Rehabilitation Potential Excellent Evaluation Complexity Number of Personal Factors/Comorbidities 0 Number of Body Systems Impaired 1-2 Clinical Presentation at Evaluation Stable Impairments Impairments Functional Activities, Functional Mobility,Pain,ROM, Soft Tissue Mobility,Tone Goals Two Impairment Pt unable to stand R SLS >10 seconds due to ankle instability Training Instructor Goal (LTG) Pt to demonstrate improved joint stability by standing R SLS for 30+ seconds in order to improve ability to participate in hiking [place]. LTG Duration 10/30/21 One Impairment Pt does not have an appropriate home Exercise Program Short Term Goal (STG) Pt to be independent and compliant with an appropriate HEP STG Duration 10/02/21 Assessment Summary Assessment Pt presents with signs and symptoms consistent with a likely right ATF ligamentous strain, which then may have also led to inflammation of her peronus brevis/longus and extensor digitorum tendons, which were likely acting as stabilizers as she continued doing hiking and yoga. Pt shows some pain and stiffness with her right ankle mobility, but at this time is ambulating WNL, and her pain is not preventing any activities. Pt will likely benefit from gentle ankle strengthening, as well as ice and rest for her inflamed tendons. Discussed with pt HEP , and pt is very self- motivated to perform all necessary HEP and any instructions to help return her to normal activities. Pt will likely do very well with independent HEP with occasional additional direction from Physical Therapist. Pt should return for follow-up in next 3-4 weeks after performing HEP at regular intervals. Physical Therapy Plan Frequency and Duration Frequency of Treatment 1 every 3-4 weeks Duration of Treatment Two months Plan of Care Start Date 09/01/21 Plan of Care End Date 10/30/21 Therapeutic Interventions Therapeutic Interventions Aquatic Therapy,Balance Training,Gait Training,Home Exercise Program,Joint Mobilizations,Manual Therapy, Neuromuscular Re-education, Patient/Caregiver Education, Self-Care/Home Management,Soft Tissue Mobilization,Taping, Therapeutic Activities, Therapeutic Exercises Next Visit Focus/Plan Next Note Type Treatment Note Next Visit Plan Advance HEP, [facility] Plan of Care Dates Plan of Care Start Date 09/01/21 Plan of Care End Date 10/30/21 Electronically Signed by: Elmer Alvarez, PT 09/04/21 1015 Please Sign and Return: I have reviewed this Plan of Care and certify that the skilled therapy services above are required to meet the patient?s needs. Physician Signature Date Printed Name and Credentials Clinical Instructor Signature Printed Name and Credentials
--- NOTE | 2021-09-22 10:26 | PT.OTN ---
Current Diagnoses Stiffness of right ankle, not elsewhere classified (09/22/21) Other synovitis and tenosynovitis, unspecified ankle and foot (09/22/21) Sprain of other ligament of right ankle, subsequent encounter (09/22/21) Physical Therapy Treatment Note PT-OP-A Visit Information Start: 09/01/21 15:47 Freq: Status: Active Protocol: Document 09/22/21 09:45 DCW (Rec: 09/22/21 10:26 DCW [id number]) Out-Patient Physical Therapy Visit Information Visit Information Visit Type Treatment Note Visit Start Time 09:45 Visit Stop Time 10:15 Total Visit Minutes 30 Visit Number 2 Number of COMPUTER BOOKKEEPER Visits 0 Evaluation Information Evaluation Date 09/01/21 PT-OP-B Current Condition Start: 09/01/21 15:47 Freq: Status: Active Protocol: Document 09/01/21 14:30 DCW (Rec: 09/01/21 16:01 DCW [id number]) Current Condition History of Current Condition Onset Date Three month history Current Complaints Right ankle and lateral lower leg pain History of Current Condition Pt is a 70 year old female presenting with a three month history of right ankle and lower leg pain. Pt reports that last May, her young granddaughter was running inbetween her legs, and as she slid her legs apart, her socks slipped on the floor, her legs went too far apart, and she heard a popping sound on her right lateral leg. Since that time, pt has been experiencing varying levels of pain in her ankle and along her lateral lower leg. Notes she is able to participate in hiking and yoga, but does notice increased soreness, especially if she wears less supportive shoes. Wearing higher hiking boots seems to help quite a bit. Notes her leg was feeling really irritated during the last few miles when hiking earlier this week. Also notes that she has a history of right knee injuries, including osteoarthritis and a torn meniscus. PT-OP-C Subjective Start: 09/01/21 15:47 Freq: Status: Active Protocol: Document 09/22/21 09:45 DCW (Rec: 09/22/21 10:26 DCW [id number]) OP-PT Subjective Patient Comments Patient Comments My ankle was doing really good, I kind of had a setback on Saturday, I kind of over-did it. I did some pilates, and we did some extra knee exercises , and then I did a trail run [place], and by the time I was done, I had a lot of pain in my knee and calf. PT-OP-D Balance Start: 09/01/21 15:47 Freq: Status: Active Protocol: Document 09/01/21 14:30 DCW (Rec: 09/04/21 10:12 DCW [id number]) Balance Tests Single Limb Standing Single Limb- Right 20 - increased wobble/ instability Single Limb- Left 45+ PT-OP-F Manual Assessment Start: 09/01/21 15:47 Freq: Status: Active Protocol: Document 09/01/21 14:30 DCW (Rec: 09/04/21 10:12 DCW [id number]) Manual Assessments Soft Tissue Assessment Soft Tissue Mobility Assessment Increased tone with tenderness to palpation 2/4: pain with wincing along right peronals. Joint Mobility Assessment Joint Mobility Assessment Mild instability with right ankle anterior draw PT-OP-G Mobility & Gait Start: 09/01/21 15:47 Freq: Status: Active Protocol: Document 09/01/21 14:30 DCW (Rec: 09/04/21 10:12 DCW [id number]) OP Gait Assessment Gait Gait Assistance Required: Independent Assistive Devices Assistive Device None Gait Deviations General Gait Pattern Within Normal Limits Stair Climbing Evaluation Evaluation Level of Assist On Stairs Independent Devices Stair Climbing Assistive Devices None Technique/Endurance Stair Climbing Direction Ascend and Descend Stair Climbing Technique Step Over Step PT-OP-K Range of Motion Start: 09/01/21 15:47 Freq: Status: Active Protocol: Document 09/01/21 14:30 DCW (Rec: 09/04/21 10:12 DCW [id number]) Ankle and Foot Goniometric Range of Motion Ankle and Foot Right Active Testing Position Sitting Dorsiflexion with Knee Flexed 10 Dorsiflexion with Knee Extended 5 Plantarflexion 50 Inversion 40 Eversion 10 Left Active Testing Position Sitting Dorsiflexion with Knee Flexed 15 Dorsiflexion with Knee Extended 10 Plantarflexion 55 Inversion 35 Eversion 20 PT-OP-L Special Tests Start: 09/01/21 15:47 Freq: Status: Active Protocol: Document 09/01/21 14:30 DCW (Rec: 09/04/21 10:12 DCW [id number]) Special Tests Foot/Ankle Special Tests Peroneal Subluxation Test Results Negative Anterior Draw Test Results Mild laxity R PT-OP-M Strength Start: 09/01/21 15:47 Freq: Status: Active Protocol: Document 09/01/21 14:30 DCW (Rec: 09/04/21 10:12 DCW [id number]) Ankle/Foot Strength Ankle and Foot Manual Muscle Testing Right Dorsiflexion (L4) 5 Normal Plantarflexion (S1) 5 Normal Inversion 5 Normal Eversion (S1) 5 Normal Comments Pain with resisted eversion Left Dorsiflexion (L4) 5 Normal Plantarflexion (S1) 5 Normal Inversion 5 Normal Eversion (S1) 5 Normal PT-OP-Q Treatments Start: 09/01/21 15:47 Freq: Status: Active Protocol: Document 09/22/21 09:45 DCW (Rec: 09/22/21 10:26 DCW [id number]) Therapeutic Exercises Supine Exercises 1 Supine Exercise Name ITB stretch /c strap Side bilateral Sidelying Exercises 1 Sidelying Exercise Name Peroneals on foam roll Side bilateral Sitting Exercises 2 Sitting Exercise Name [place] Standing Exercises 1 Standing Exercise Name ITB Wall stretch Manual Therapy Treatment Soft Tissue Mobilization 1 Body Location Peroneals Mobilization Type Strumming,Sustained Pressure PT-OP-T Assessment and Plan Start: 09/01/21 15:47 Freq: Status: Active Protocol: Document 09/22/21 09:45 DCW (Rec: 09/22/21 10:26 DCW [id number]) Physical Therapy Assessment Impairments Impairments Functional Activities, Functional Mobility,Pain,ROM, Soft Tissue Mobility,Tone Goals Two Impairment Pt unable to stand R SLS >10 seconds due to ankle instability Navy Material Inspector Goal (LTG) Pt to demonstrate improved joint stability by standing R SLS for 30+ seconds in order to improve ability to participate in [employer]. LTG Duration Met One Impairment Pt does not have an appropriate home Exercise Program Short Term Goal (STG) Pt to be independent and compliant with an appropriate HEP STG Duration Met Assessment Summary Assessment Pt has met all goals, is doing very well, is compliant with her HEP. Pt will likely discharge, but would like to hold chart open for one month in case she experiences any setbacks. If pt has not scheduled any follow-up visits within the next month, she will be discharged. Physical Therapy Plan Frequency and Duration Frequency of Treatment 1 every 3-4 weeks Duration of Treatment Two months Plan of Care Start Date 09/01/21 Plan of Care End Date 10/30/21 Therapeutic Interventions Therapeutic Interventions Aquatic Therapy,Balance Training,Gait Training,Home Exercise Program,Joint Mobilizations,Manual Therapy, Neuromuscular Re-education, Patient/Caregiver Education, Self-Care/Home Management,Soft Tissue Mobilization,Taping, Therapeutic Activities, Therapeutic Exercises Next Visit Focus/Plan Next Note Type Treatment Note Next Visit Plan Advance HEP, STM to [place]
--- NOTE | 2022-03-30 08:50 | PT.OPDS ---
Current Diagnoses Stiffness of right ankle, not elsewhere classified (09/22/21) Other synovitis and tenosynovitis, unspecified ankle and foot (09/22/21) Sprain of other ligament of right ankle, subsequent encounter (09/22/21) Visit Care Team Role Provider Type Zara Ragland MD Attending Provider Physician Primary Care Provider Referring Provider Specialty: [facility] Address: [address] [place] [address], [facility] [place], [facility] Email: [email or web address] Visit Number Visit Number 2 Discharge Summary PT-OP-B Current Condition Start: 09/01/21 15:47 Freq: Status: Active Protocol: Document 09/01/21 14:30 DCW (Rec: 09/01/21 16:01 DCW [id number]) Current Condition History of Current Condition Onset Date Three month history Current Complaints Right ankle and lateral lower leg pain History of Current Condition Pt is a 70 year old female presenting with a three month history of right ankle and lower leg pain. Pt reports that last May, her young granddaughter was running inbetween her legs, and as she slid her legs apart, her socks slipped on the floor, her legs went too far apart, and she heard a popping sound on her right lateral leg. Since that time, pt has been experiencing varying levels of pain in her ankle and along her lateral lower leg. Notes she is able to participate in hiking and yoga, but does notice increased soreness, especially if she wears less supportive shoes. Wearing higher hiking boots seems to help quite a bit. Notes her leg was feeling really irritated during the last few miles when hiking earlier this week. Also notes that she has a history of right knee injuries, including osteoarthritis and a torn meniscus. PT-OP-C Subjective Start: 09/01/21 15:47 Freq: Status: Active Protocol: Document 09/22/21 09:45 DCW (Rec: 09/22/21 10:26 DCW [id number]) OP-PT Subjective Patient Comments Patient Comments My ankle was doing really good, I kind of had a setback on Saturday, I kind of over-did it. I did some pilates, and we did some extra knee exercises , and then I did a trail run [place], and by the time I was done, I had a lot of pain in my knee and calf. PT-OP-D Balance Start: 09/01/21 15:47 Freq: Status: Active Protocol: Document 09/01/21 14:30 DCW (Rec: 09/04/21 10:12 DCW [id number]) Balance Tests Single Limb Standing Single Limb- Right 20 - increased wobble/ instability Single Limb- Left 45+ PT-OP-F Manual Assessment Start: 09/01/21 15:47 Freq: Status: Active Protocol: Document 09/01/21 14:30 DCW (Rec: 09/04/21 10:12 DCW [id number]) Manual Assessments Soft Tissue Assessment Soft Tissue Mobility Assessment Increased tone with tenderness to palpation 2/4: pain with wincing along right peronals. Joint Mobility Assessment Joint Mobility Assessment Mild instability with right ankle anterior draw PT-OP-G Mobility & Gait Start: 09/01/21 15:47 Freq: Status: Active Protocol: Document 09/01/21 14:30 DCW (Rec: 09/04/21 10:12 DCW [id number]) OP Gait Assessment Gait Gait Assistance Required: Independent Assistive Devices Assistive Device None Gait Deviations General Gait Pattern Within Normal Limits Stair Climbing Evaluation Evaluation Level of Assist On Stairs Independent Devices Stair Climbing Assistive Devices None Technique/Endurance Stair Climbing Direction Ascend and Descend Stair Climbing Technique Step Over Step PT-OP-K Range of Motion Start: 09/01/21 15:47 Freq: Status: Active Protocol: Document 09/01/21 14:30 DCW (Rec: 09/04/21 10:12 DCW [id number]) Ankle and Foot Goniometric Range of Motion Ankle and Foot Right Active Testing Position Sitting Dorsiflexion with Knee Flexed 10 Dorsiflexion with Knee Extended 5 Plantarflexion 50 Inversion 40 Eversion 10 Left Active Testing Position Sitting Dorsiflexion with Knee Flexed 15 Dorsiflexion with Knee Extended 10 Plantarflexion 55 Inversion 35 Eversion 20 PT-OP-L Special Tests Start: 09/01/21 15:47 Freq: Status: Active Protocol: Document 09/01/21 14:30 DCW (Rec: 09/04/21 10:12 DCW [id number]) Special Tests Foot/Ankle Special Tests Peroneal Subluxation Test Results Negative Anterior Draw Test Results Mild laxity R PT-OP-M Strength Start: 09/01/21 15:47 Freq: Status: Active Protocol: Document 09/01/21 14:30 DCW (Rec: 09/04/21 10:12 DCW [id number]) Ankle/Foot Strength Ankle and Foot Manual Muscle Testing Right Dorsiflexion (L4) 5 Normal Plantarflexion (S1) 5 Normal Inversion 5 Normal Eversion (S1) 5 Normal Comments Pain with resisted eversion Left Dorsiflexion (L4) 5 Normal Plantarflexion (S1) 5 Normal Inversion 5 Normal Eversion (S1) 5 Normal PT-OP-T Assessment and Plan Start: 09/01/21 15:47 Freq: Status: Active Protocol: Document 03/30/22 08:49 DCW (Rec: 03/30/22 08:50 DCW [id number]) Physical Therapy Assessment Assessment Summary Assessment Pt was doing very well at last visit, was instructed to call for follow-up appointments if she had a change of symptoms within a month. Pt has not called for any follow-ups, will be discharged at this time. Physical Therapy Plan Discharge Physical Therapy Discharge Reasons Goals Met
== END 2022-04-02 13:21 ==
LOC: PHYS 09:45
PROVIDERS: PCP Family Medicine; Referring Provider Family Medicine; Visit Provider Family Medicine
DX: M65.879 Other synovitis and tenosynovitis, unspecified ankle and foot (principal); S93.491D Sprain of other ligament of right ankle, subsequent encounter; M25.671 Stiffness of right ankle, not elsewhere classified
CPT/HCPCS: 97110; 97161

== ENCOUNTER → 2022-01-23 08:40 | Outpatient (CLI) | payer MEDICARE, OTHER, SELFPAY ==
[2022-01-23 10:05] LABS: Alanine Aminotransferase 38 IU/L (<35); Albumin 4.3 g/dL (3.5-5.0); Albumin Globulin Ratio 1.9 (1.0-2.8); Alkaline Phosphatase 67 U/L (38-126); Aspartate Aminotransferase 35 IU/L (14-36); BUN Creatinine Ratio 25.9 (6-22); Bilirubin Total 0.6 mg/dL (0.2-1.3); Blood Urea Nitrogen 15 mg/dL (7-17); Calcium 9.2 mg/dL (8.4-10.2); Carbon Dioxide 28 mmol/L (22-32); Chloride 105 mmol/L (98-107); Cholesterol 196 mg/dL (140-199); Estimated Glomerular Filt Rate > 60 mL/min (>60); Globulin 2.3 g/dL (1.7-4.1); Glucose 103 mg/dL (80-110); HDL Cholesterol 89 mg/dL (40-60); HEMOLYSIS < 15 (0-50); LDL Cholesterol Calculated 95 mg/dL (<100); Potassium 4.1 mmol/L (3.4-5.1); Sodium 140 mmol/L (137-145); Total Protein 6.6 g/dL (6.3-8.2); Triglycerides 58 mg/dL (35-150)
== END ==
PROVIDERS: PCP Family Medicine; Referring Provider Family Medicine; Visit Provider Family Medicine
DX: E78.5 Hyperlipidemia, unspecified (principal)
CPT/HCPCS: 36415; 80053; 80061

== ENCOUNTER → 2022-05-18 16:49 | Outpatient (CLI) | payer MEDICARE, OTHER, SELFPAY | PROVIDERS: PCP Family Medicine; Referring Provider Internal Medicine; Visit Provider Internal Medicine | DX: Z23 Encounter for immunization (principal) | CPT/HCPCS: 90471; 90662 ==

== ENCOUNTER → 2022-07-27 08:01 | Outpatient (CLI) | payer MEDICARE, OTHER, SELFPAY ==
--- NOTE | 2022-07-27 | DI.MG.S_ITS ---
BILATERAL DIGITAL SCREENING MAMMOGRAM 3D/2D WITH CAD: 07/27/2022 CLINICAL: Routine screening. Family history of breast cancer. Comparison is made to exams dated: 07/24/2021 mammogram, 07/21/2020 mammogram, and 07/15/2019 mammogram - [facility]. Both breasts are heterogeneously dense, which may obscure small masses (category c / 51-75% glandular tissue). Current study was also evaluated with a Computer Aided Detection (CAD) system. There is a new asymmetry with grouped punctate calcifications in the right breast central to the nipple anterior depth. There is architectural distortion associated with the asymmetry. No other significant masses, calcifications, or other findings are seen in either breast. IMPRESSION: INCOMPLETE: NEEDS ADDITIONAL IMAGING EVALUATION The new asymmetry in the right breast is indeterminate. Additional views with possible ultrasound are recommended. Based on the Tyrer Cuzick model (a risk assessment model) the patient's lifetime risk is 10.5% and her 10 year risk is 7.9%. According to the ACR, ACS, and NCCN guidelines, an annual breast MRI exam along with mammogram is recommended if the patient's lifetime risk is 20% or greater. This exam was interpreted at Station ID: [id number]. NOTE: For mammograms, a report in lay terms will be sent to the patient. Approximately 15% of breast malignancies will not be visualized mammographically. In the management of a palpable breast mass, a negative mammogram must not discourage biopsy of a clinically suspicious lesion. Electronically Signed By: Lopez Tariq M.D., jr/nilda:07/27/2022 10:41:37 letter sent: Additional Imaging Needed ACR BI-RADS Category 0: Incomplete [id number]
== END ==
PROVIDERS: PCP Family Medicine; Referring Provider Family Medicine; Visit Provider Family Medicine
DX: Z12.31 Encounter for screening mammogram for malignant neoplasm of breast (principal); Z80.3 Family history of malignant neoplasm of breast
CPT/HCPCS: 77063; 77067

== ENCOUNTER → 2022-07-28 08:21 | Outpatient (CLI) | payer MEDICARE, OTHER, SELFPAY ==
[2022-07-28 10:17] LABS: Add Manual Diff / Slide Review NO; Basophils Absolute Auto 100 /uL (0-100); Eosinophils Absolute Auto 200 /uL (0-450); Eosinophils Percent Auto 3.2 % (2-4); Hematocrit 40.8 % (36-46); Hemoglobin 13.7 g/dL (12.0-16.0); Lymphocytes Absolute Auto 1300 /uL (1100-4500); Lymphocytes Percent Auto 19.1 % (25-40); Mean Corpuscular HGB Conc 33.7 % (30-36); Mean Corpuscular Hemoglobin 31.6 PG (26-34); Mean Corpuscular Volume 93.8 fL (80-100); Monocytes Absolute Auto 400 /uL (0-900); Monocytes Percent Auto 5.8 % (3-14); Neutrophils Absolute Auto 4700 /uL (1500-7000); Neutrophils Percent Auto 70.9 % (50-75); Platelet Count 268 X10^3/uL (150-400); Red Blood Cell Count 4.35 X10^6/uL (4.0-5.2); Red Cell Distribution Width 13.1 % (11.6-14.8); White Blood Cell Count 6.7 X10^3/uL (4.5-11.0)
[2022-07-28 10:38] LABS: Alanine Aminotransferase 30 IU/L (<35); Albumin 4.1 g/dL (3.5-5.0); Albumin Globulin Ratio 1.6 (1.0-2.8); Alkaline Phosphatase 63 U/L (38-126); Aspartate Aminotransferase 27 IU/L (14-36); BUN Creatinine Ratio 24.5 (6-22); Bilirubin Total 0.6 mg/dL (0.2-1.3); Blood Urea Nitrogen 13 mg/dL (7-17); Carbon Dioxide 30 mmol/L (22-32); Chloride 101 mmol/L (98-107); Cholesterol 208 mg/dL (140-199); Estimated Glomerular Filt Rate > 60 mL/min (>60); Globulin 2.5 g/dL (1.7-4.1); Glucose 90 mg/dL (80-110); HDL Cholesterol 83 mg/dL (40-60); HEMOLYSIS < 15 (0-50); LDL Cholesterol Calculated 109 mg/dL (<100); Potassium 4.2 mmol/L (3.4-5.1); Sodium 138 mmol/L (137-145); Total Protein 6.6 g/dL (6.3-8.2); Triglycerides 80 mg/dL (35-150)
[2022-07-28 10:49] LABS: LDL Cholesterol Direct 92 mg/dL (<100)
[2022-07-28 11:11] LABS: TSH w/ Reflex to FT4 1.15 uIU/mL (0.47-4.68)
== END ==
PROVIDERS: PCP Family Medicine; Referring Provider Family Medicine; Visit Provider Family Medicine
DX: E78.5 Hyperlipidemia, unspecified (principal); M85.9 Disorder of bone density and structure, unspecified; Z01.419 Encounter for gynecological examination (general) (routine) without abnormal findings; Z13.820 Encounter for screening for osteoporosis; Z79.890 Hormone replacement therapy
CPT/HCPCS: 36415; 80053; 80061; 83721; 84443; 85025

== ENCOUNTER → 2022-08-31 08:58 | Outpatient (CLI) | payer MEDICARE, OTHER, SELFPAY ==
--- NOTE | 2022-08-31 | DI.MG.S_ITS ---
UNILATERAL RIGHT DIGITAL DIAGNOSTIC MAMMOGRAM 3D/2D WITH ADDITIONAL VIEWS: 08/31/2022 CLINICAL: Additional evaluation requested from prior study. Comparison is made to exams dated: 07/27/2022 mammogram, 07/24/2021 mammogram, and 07/21/2020 mammogram - [facility]. The right breast is heterogeneously dense, which may obscure small masses (category c / 51-75% glandular tissue). There is a focal asymmetry in the right breast at 10 o'clock middle depth. This is less prominent. No other significant masses or calcifications are seen in the breast. IMPRESSION: INCOMPLETE: NEEDS ADDITIONAL IMAGING EVALUATION The focal asymmetry in the right breast resembles fibroglandular tissue and is indeterminate. An ultrasound is recommended. Based on the Tyrer Cuzick model (a risk assessment model) the patient's lifetime risk is 10.5% and her 10 year risk is 7.9%. According to the ACR, ACS, and NCCN guidelines, an annual breast MRI exam along with mammogram is recommended if the patient's lifetime risk is 20% or greater. This exam was interpreted at Station ID: [id number]. NOTE: For mammograms, a report in lay terms will be sent to the patient. Approximately 15% of breast malignancies will not be visualized mammographically. In the management of a palpable breast mass, a negative mammogram must not discourage biopsy of a clinically suspicious lesion. Electronically Signed By: Hadley dolan/nilda:08/31/2022 10:50:00 ACR BI-RADS Category 0: Incomplete [id number]
--- NOTE | 2022-08-31 | DI.US.S_ITS ---
LIMITED ULTRASOUND OF RIGHT BREAST: 08/31/2022 CLINICAL: ADDITIONAL VIEWS OF RIGHT BREAST. Comparison is made to exams dated: 08/31/2022 mammogram, 07/27/2022 mammogram, 07/24/2021 mammogram, and 07/21/2020 mammogram - [facility]. Real-time ultrasound of the right breast 9-11 o'clock region was performed. Comer scale images of the real-time examination were reviewed. Fibroglandular tissue but no mass is identifed in the area of the mammographic asymmetry in the right breast 10 o'clock position. IMPRESSION: BENIGN No sonographic abnormality is seen corresponding to the mammographic asymmetry in the right breast, which is compatible with normal fibroglandular tissue. Return to screening mammograms is recommended. There is no sonographic evidence of malignancy. Return to annual mammogram screening schedule is recommended. This exam was interpreted at Station ID: [id number]. Electronically Signed By: Hadley dolan/nilda:08/31/2022 10:52:16 letter sent: Normal Exam Ultrasound BI-RADS: 2 Benign
== END ==
PROVIDERS: PCP Family Medicine; Referring Provider Family Medicine; Visit Provider Family Medicine
DX: R92.8 Other abnormal and inconclusive findings on diagnostic imaging of breast (principal); N63.10 Unspecified lump in the right breast, unspecified quadrant
CPT/HCPCS: 76642; 77065; G0279

== ENCOUNTER → 2023-05-30 13:19 | Outpatient (CLI) | payer MEDICARE, OTHER, SELFPAY | PROVIDERS: PCP Family Medicine; Referring Provider Family Medicine; Visit Provider Family Medicine | DX: Z23 Encounter for immunization (principal) | CPT/HCPCS: 90471; 90662 ==

== ENCOUNTER → 2023-07-17 07:25 | Outpatient (CLI) | payer MEDICARE, OTHER, SELFPAY ==
[2023-07-17 08:41] LABS: Add Manual Diff / Slide Review NO; Basophils Absolute Auto 100 /uL (0-100); Basophils Percent Auto 1.2 % (0-2); Eosinophils Absolute Auto 200 /uL (0-450); Eosinophils Percent Auto 3.1 % (2-4); Hemoglobin 14.2 g/dL (12.0-16.0); Lymphocytes Absolute Auto 1500 /uL (1100-4500); Lymphocytes Percent Auto 28.5 % (25-40); Mean Corpuscular HGB Conc 33.8 % (30-36); Mean Corpuscular Hemoglobin 31.6 PG (26-34); Mean Corpuscular Volume 93.5 fL (80-100); Monocytes Absolute Auto 500 /uL (0-900); Neutrophils Absolute Auto 3000 /uL (1500-7000); Neutrophils Percent Auto 58.2 % (50-75); Platelet Count 250 X10^3/uL (150-400); Red Blood Cell Count 4.49 X10^6/uL (4.0-5.2); Red Cell Distribution Width 13.1 % (11.6-14.8); White Blood Cell Count 5.1 X10^3/uL (4.5-11.0)
[2023-07-17 09:12] LABS: Alanine Aminotransferase 29 IU/L (<35); Albumin 4.2 g/dL (3.5-5.0); Albumin Globulin Ratio 1.9 (1.0-2.8); Alkaline Phosphatase 57 U/L (38-126); Aspartate Aminotransferase 29 IU/L (14-36); BUN Creatinine Ratio 26.8 (6-22); Bilirubin Total 0.8 mg/dL (0.2-1.3); Blood Urea Nitrogen 15 mg/dL (7-17); Calcium 9.5 mg/dL (8.4-10.2); Carbon Dioxide 28 mmol/L (22-32); Chloride 103 mmol/L (98-107); Cholesterol 242 mg/dL (140-199); Estimated Glomerular Filt Rate > 60 mL/min (>60); Globulin 2.2 g/dL (1.7-4.1); Glucose 92 mg/dL (80-110); HDL Cholesterol 95 mg/dL (40-60); HEMOLYSIS < 15 (0-50); LDL Cholesterol Calculated 132 mg/dL (<100); Potassium 4.7 mmol/L (3.4-5.1); Sodium 136 mmol/L (137-145); Total Protein 6.4 g/dL (6.3-8.2); Triglycerides 76 mg/dL (35-150)
[2023-07-17 09:38] LABS: Thyroid Stimulating Hormone 1.27 uIU/mL (0.47-4.68)
[2023-07-17 14:02] LABS: Hemoglobin A1C% w Est Avg Glu 5.7 % (4.0-6.0)
== END ==
PROVIDERS: PCP Family Medicine; Referring Provider Family Medicine; Visit Provider Family Medicine
DX: R00.2 Palpitations (principal); E78.5 Hyperlipidemia, unspecified
CPT/HCPCS: 36415; 80053; 80061; 83036; 84443; 85025

== ENCOUNTER → 2023-07-29 09:18 | Outpatient (CLI) | payer MEDICARE, OTHER, SELFPAY ==
--- NOTE | 2023-07-29 | DI.MG.S_ITS ---
BILATERAL DIGITAL SCREENING MAMMOGRAM 3D/2D WITH CAD: 07/29/2023 CLINICAL: Routine screening. Family history of breast cancer. Comparison is made to exams dated: 08/31/2022 mammogram, 07/27/2022 mammogram, 07/24/2021 mammogram, and 07/21/2020 mammogram - [facility]. Both breasts are heterogeneously dense, which may obscure small masses (category c / 51-75% glandular tissue). Current study was also evaluated with a Computer Aided Detection (CAD) system. No significant masses, calcifications, or other findings are seen in either breast. There has been no significant interval change. IMPRESSION: NEGATIVE There is no mammographic evidence of malignancy. A 1 year screening mammogram is recommended. Based on the Tyrer Cuzick model (a risk assessment model) the patient's lifetime risk is 9.9% and her 10 year risk is 8.1%. According to the ACR, ACS, and NCCN guidelines, an annual breast MRI exam along with mammogram is recommended if the patient's lifetime risk is 20% or greater. This exam was interpreted at Station ID: [id number]. NOTE: For mammograms, a report in lay terms will be sent to the patient. Approximately 15% of breast malignancies will not be visualized mammographically. In the management of a palpable breast mass, a negative mammogram must not discourage biopsy of a clinically suspicious lesion. Electronically Signed By: Radha martinez/nilda:07/29/2023 13:50:51 letter sent: Normal Exam ACR BI-RADS Category 1: Negative [id number]
--- NOTE | 2023-07-29 | DI.RAD.S_ITS ---
Bone Density Report Name: MARTIN REYNA Age: 72 Sex: Female Ethnicity: White Date of : 1950 Indication: postmenopausal; screening for osteoporosis; parental hip fracture; Referring Provider: CYNTHIA HINSON Study: Bone densitometry was performed. Exam Date: July 29, 2023 Accession number: [id number] Bone Density: Region BMD T-score Z-score Classification AP Spine(L1, L2, L3) 0.994 -0.2 2.1 Normal Femoral Neck (Left) 0.696 -1.4 0.6 Osteopenia Total Hip (Left) 0.863 -0.6 1.1 Normal Femoral Neck (Right) 0.729 -1.1 0.9 Osteopenia Total Hip (Right) 0.876 -0.5 1.2 Normal Total Hip Mean 0.869 -0.6 1.2 Normal World Health Organization criteria for BMD impression classify patients as: Normal (T-score at or above -1.0), Osteopenia (T-score between -1.0 and -2.5), or Osteoporosis (T-score at or below -2.5). 10-year Fracture Risk(1): Major Osteoporotic Fracture 16% Hip Fracture 6.5% Reported Risk Factors: [place] (), Neck BMD=0.696, BMI=23.7, parental fracture (1) FRAX(R) Version 3.08. Fracture probability calculated for an untreated patient. Fracture probability may be lower if the patient has received treatment. Previous Exams: -- Region Exam Age BMD T-score BMD Change BMD Change Date g/cm2 vs Baseline vs Previous -- AP Spine (L1-L3) 07/29/2023 72 0.994 -0.2 -0.074 (-6.9%)# -0.044 (-4.3%)# 07/28/2020 69 1.039 0.2 -0.029 (-2.8%)* 0.011 (1.1%) 07/14/2018 67 1.028 0.1 -0.040 (-3.8%)* -0.017 (-1.6%) 09/01/2015 64 1.045 0.2 -0.023 (-2.2%)* -0.056 (-5.1%)* 07/24/2010 59 1.101 0.8 0.033 (3.1%)* 0.033 (3.1%)* 06/10/2006 55 1.068 0.5 Total Hip(Left) 07/29/2023 72 0.863 -0.6 -0.135 (-13.5%)# -0.028 (-3.1%)# 07/28/2020 69 0.891 -0.4 -0.107 (-10.8%)* 0.013 (1.4%) 07/14/2018 67 0.878 -0.5 -0.120 (-12.0%)* -0.053 (-5.7%)* 09/01/2015 64 0.931 -0.1 -0.067 (-6.7%)* -0.048 (-4.9%)* 07/24/2010 59 0.979 0.3 -0.019 (-1.9%) -0.019 (-1.9%) 06/10/2006 55 0.998 0.5 Total Hip(Right) 07/29/2023 72 0.876 -0.5 -0.129 (-12.9%)# 0.006 (0.7%)# 07/28/2020 69 0.869 -0.6 -0.135 (-13.5%)* -0.031 (-3.5%)* 07/14/2018 67 0.901 -0.3 -0.104 (-10.3%)* -0.024 (-2.6%) 09/01/2015 64 0.925 -0.1 -0.080 (-8.0%)* -0.053 (-5.4%)* 07/24/2010 59 0.977 0.3 -0.027 (-2.7%)* -0.027 (-2.7%)* 06/10/2006 55 1.005 0.5 -- *Denotes significance at 95% confidence level, LSC for AP Spine = 0.022 g/cm2, LSC for Total Hip = 0.027 g/cm2 Rate of change results reflect vertebral levels common to all scans # Denotes dissimilar scan types or analysis methods Impression: The patient has low bone mass, based on the Left Femoral Neck T-score. The patient has an estimated ten-year risk of hip fracture of 6.5% and an estimated ten-year risk of major fracture of 16%, based on the WHO FRAX algorithm. The patient has risk factors, including: parental hip fracture. No significant bone loss was observed. Discussion: BONE DENSITY IS LOW AT ONE OR MORE SKELETAL SITES. THE PATIENT'S BMD AND CLINICAL RISK FACTORS CONTRIBUTE TO THIS PATIENT'S INCREASED RISK OF FRACTURE. This patient's lowest T-score is low at one or more skeletal sites. It meets the World Health Organization's (WHO) criteria for low bone mass (T-score between -1.0 and -2.5). The patient's 10-year risk of hip fracture as calculated by FRAX exceeds the threshold where pharmacological therapy is recommended by the National Osteoporosis Foundation (NOF). However, all treatment decisions require clinical judgment and consideration of individual patient factors, including patient preferences, comorbidities, previous drug use, risk factors not captured in the FRAX model (e.g., frailty, falls, vitamin D deficiency, increased bone turnover, interval significant decline in bone density) and possible under or overestimation of fracture risk by FRAX. The patient should follow a healthful lifestyle (good nutrition with adequate calcium and vitamin D, and appropriate weight-bearing exercise). Follow-Up: Consider a repeat BMD and Vertebral Fracture Assessment (VFA) exam in 2 years or sooner if medically necessary, to reassess this patient's status. Reported by: DEYVI GALVAN MD on 07/29/2023 9:50:00 AM.
== END ==
PROVIDERS: PCP Family Medicine; Referring Provider Family Medicine; Visit Provider Family Medicine
DX: Z12.31 Encounter for screening mammogram for malignant neoplasm of breast (principal); Z78.0 Asymptomatic menopausal state; Z79.890 Hormone replacement therapy; M85.852 Other specified disorders of bone density and structure, left thigh; Z80.3 Family history of malignant neoplasm of breast
CPT/HCPCS: 77063; 77067; 77080

== ENCOUNTER → 2023-11-18 08:01 | Outpatient (CLI) | payer MEDICARE, OTHER, SELFPAY ==
[2023-11-18 09:27] LABS: Alanine Aminotransferase 22 IU/L (<35); Albumin 3.9 g/dL (3.5-5.0); Albumin Globulin Ratio 1.7 (1.0-2.8); Alkaline Phosphatase 55 U/L (38-126); Aspartate Aminotransferase 25 IU/L (14-36); BUN Creatinine Ratio 23.6 (6-22); Bilirubin Total 0.6 mg/dL (0.2-1.3); Blood Urea Nitrogen 13 mg/dL (7-17); Calcium 9.2 mg/dL (8.4-10.2); Carbon Dioxide 30 mmol/L (22-32); Chloride 106 mmol/L (98-107); Cholesterol 188 mg/dL (140-199); Estimated Glomerular Filt Rate > 60 mL/min (>60); Globulin 2.3 g/dL (1.7-4.1); Glucose 86 mg/dL (80-110); HDL Cholesterol 88 mg/dL (40-60); HEMOLYSIS < 15 (0-50); LDL Cholesterol Calculated 88 mg/dL (<100); Potassium 4.1 mmol/L (3.4-5.1); Sodium 137 mmol/L (137-145); Total Protein 6.2 g/dL (6.3-8.2); Triglycerides 60 mg/dL (35-150)
[2023-11-19 19:08] LABS: Thyroid Stimulating Hormone 1.47 uIU/mL (0.47-4.68)
[2023-11-22 05:31] LABS: Free T4, Direct Thyroxine 1.38 ng/dL (0.78-2.19)
== END ==
LOC: LAB 08:04
PROVIDERS: PCP Family Medicine; Referring Provider Family Medicine; Visit Provider Family Medicine
DX: Z00.00 Encounter for general adult medical examination without abnormal findings (principal); E78.00 Pure hypercholesterolemia, unspecified; Z79.890 Hormone replacement therapy; M85.80 Other specified disorders of bone density and structure, unspecified site; R00.2 Palpitations; Z13.820 Encounter for screening for osteoporosis; L30.9 Dermatitis, unspecified; L60.3 Nail dystrophy; M20.42 Other hammer toe(s) (acquired), left foot; Z13.29 Encounter for screening for other suspected endocrine disorder
CPT/HCPCS: 36415; 80053; 80061; 84439; 84443

== ENCOUNTER → 2024-07-15 07:29 | Outpatient (CLI) | payer MEDICARE, OTHER, SELFPAY ==
[2024-07-15 08:42] LABS: Add Manual Diff / Slide Review NO; Basophils Absolute Auto 100 /uL (0-100); Basophils Percent Auto 1.1 % (0-2); Eosinophils Absolute Auto 100 /uL (0-450); Eosinophils Percent Auto 2.3 % (2-4); Hematocrit 42.4 % (36-46); Hemoglobin 14.1 g/dL (12.0-16.0); Lymphocytes Absolute Auto 1400 /uL (1100-4500); Lymphocytes Percent Auto 28.6 % (25-40); Mean Corpuscular HGB Conc 33.3 % (30-36); Mean Corpuscular Hemoglobin 31.8 PG (26-34); Mean Corpuscular Volume 95.5 fL (80-100); Monocytes Absolute Auto 500 /uL (0-900); Monocytes Percent Auto 9.2 % (3-14); Neutrophils Absolute Auto 3000 /uL (1500-7000); Neutrophils Percent Auto 58.8 % (50-75); Platelet Count 245 X10^3/uL (150-400); Red Blood Cell Count 4.44 X10^6/uL (4.0-5.2); Red Cell Distribution Width 13.1 % (11.6-14.8)
[2024-07-15 08:59] LABS: Alanine Aminotransferase 28 IU/L (<35); Albumin 4.3 g/dL (3.5-5.0); Albumin Globulin Ratio 2.2 (1.0-2.8); Alkaline Phosphatase 64 U/L (38-126); Aspartate Aminotransferase 32 IU/L (14-36); Bilirubin Total 0.8 mg/dL (0.2-1.3); Blood Urea Nitrogen 13 mg/dL (7-17); Calcium 9.3 mg/dL (8.4-10.2); Carbon Dioxide 28 mmol/L (22-32); Chloride 105 mmol/L (98-107); Estimated Glomerular Filt Rate > 60 mL/min (>60); Glucose 91 mg/dL (80-110); HEMOLYSIS < 15 (0-50); Potassium 4.2 mmol/L (3.4-5.1); Sodium 136 mmol/L (137-145); Total Protein 6.3 g/dL (6.3-8.2)
[2024-07-15 09:15] LABS: T4 Total Thyroxine 6.24 ug/dL (5.5-11.0)
[2024-07-15 09:29] LABS: Thyroid Stimulating Hormone 1.14 uIU/mL (0.47-4.68)
[2024-07-20 11:34] LABS: Cholesterol,Total 210; HDL Cholesterol 92
[2024-07-20 11:35] LABS: Triglycerides 73
[2024-07-20 11:36] LABS: LDL Cholesterol Cal 105; VLDL Cholesterol Cal 13
[2024-07-20 11:37] LABS: Cholesterol HDL Ratio 2.3
== END ==
PROVIDERS: PCP Family Medicine; Referring Provider Family Medicine; Visit Provider Family Medicine
DX: Z00.00 Encounter for general adult medical examination without abnormal findings (principal); E78.00 Pure hypercholesterolemia, unspecified; M85.80 Other specified disorders of bone density and structure, unspecified site; Z13.0 Encounter for screening for diseases of the blood and blood-forming organs and certain disorders involving the immune mechanism; Z13.29 Encounter for screening for other suspected endocrine disorder; R00.2 Palpitations; Z79.890 Hormone replacement therapy
CPT/HCPCS: 36415; 80053; 80061; 84436; 84443; 85025

== ENCOUNTER → 2024-07-31 09:58 | Outpatient (CLI) | payer MEDICARE, OTHER, SELFPAY ==
--- NOTE | 2024-07-31 10:01 | DI.MG.S_ITS ---
BILATERAL DIGITAL SCREENING MAMMOGRAM 3D/2D WITH CAD: 07/31/2024 CLINICAL: Routine screening. Family history of breast cancer. Comparison is made to exams dated: 07/29/2023 mammogram, 07/27/2022 mammogram, and 07/24/2021 mammogram - [facility]. The breasts are heterogeneously dense, which may obscure small masses (category c / 51-75% glandular tissue). Current study was also evaluated with a Computer Aided Detection (CAD) system. No significant masses, calcifications, or other findings are seen in either breast. There has been no significant interval change. IMPRESSION: NEGATIVE There is no mammographic evidence of malignancy. A 1 year screening mammogram is recommended. Based on the Tyrer Cuzick model (a risk assessment model) the patient's lifetime risk is 9.2% and her 10 year risk is 8.3%. According to the ACR, ACS, and NCCN guidelines, an annual breast MRI exam along with mammogram is recommended if the patient's lifetime risk is 20% or greater. This exam was interpreted at Station ID: [id number]. NOTE: For mammograms, a report in lay terms will be sent to the patient. Approximately 15% of breast malignancies will not be visualized mammographically. In the management of a palpable breast mass, a negative mammogram must not discourage biopsy of a clinically suspicious lesion. Electronically Signed By: Deonte woodall/nilda:08/01/2024 09:00:47 letter sent: Normal Exam ACR BI-RADS Category 1: Negative
== END ==
PROVIDERS: PCP Family Medicine; Referring Provider Family Medicine; Visit Provider Family Medicine
DX: Z12.31 Encounter for screening mammogram for malignant neoplasm of breast (principal); Z80.3 Family history of malignant neoplasm of breast; R92.333 Mammographic heterogeneous density, bilateral breasts
CPT/HCPCS: 77063; 77067

== ENCOUNTER → 2024-11-23 07:36 | Outpatient (CLI) | payer MEDICARE, OTHER, SELFPAY ==
[2024-11-23 09:01] LABS: Alanine Aminotransferase 26 IU/L (<35); Albumin 4.4 g/dL (3.5-5.0); Albumin Globulin Ratio 2.4 (1.0-2.8); Alkaline Phosphatase 66 U/L (38-126); Aspartate Aminotransferase 29 IU/L (14-36); BUN Creatinine Ratio 20.3 (6-22); Bilirubin Total 0.7 mg/dL (0.2-1.3); Blood Urea Nitrogen 12 mg/dL (7-17); Calcium 9.1 mg/dL (8.4-10.2); Carbon Dioxide 26 mmol/L (22-32); Chloride 104 mmol/L (98-107); Cholesterol 199 mg/dL (140-199); Estimated Glomerular Filt Rate > 60 mL/min (>60); Globulin 1.8 g/dL (1.7-4.1); Glucose 91 mg/dL (80-110); HDL Cholesterol 92 mg/dL (40-60); HEMOLYSIS < 15 (0-50); LDL Cholesterol Calculated 93 mg/dL (<100); Sodium 137 mmol/L (137-145); Total Protein 6.2 g/dL (6.3-8.2); Triglycerides 70 mg/dL (35-150)
== END ==
PROVIDERS: PCP Family Medicine; Referring Provider Family Medicine; Visit Provider Family Medicine
DX: E78.00 Pure hypercholesterolemia, unspecified (principal)
CPT/HCPCS: 36415; 80053; 80061

== ENCOUNTER → 2025-07-05 07:42 | Outpatient (CLI) | payer MEDICARE, OTHER, SELFPAY ==
[2025-07-05 08:30] LABS: Add Manual Diff / Slide Review NO; Hematocrit 42.6 % (36-46); Hemoglobin 14.5 g/dL (12.0-16.0); Lymphocytes Absolute Auto 1400 /uL (1100-4500); Mean Corpuscular HGB Conc 34.1 % (30-36); Mean Corpuscular Hemoglobin 32.4 PG (26-34); Mean Corpuscular Volume 94.9 fL (80-100); Platelet Count 222 X10^3/uL (150-400)
[2025-07-05 08:42] LABS: Alanine Aminotransferase 25 IU/L (<35); Albumin 4.6 g/dL (3.5-5.0); Albumin Globulin Ratio 2.0 (1.0-2.8); Alkaline Phosphatase 65 U/L (38-126); Blood Urea Nitrogen 16 mg/dL (7-17); Calcium 9.2 mg/dL (8.4-10.2); Carbon Dioxide 27 mmol/L (22-32); Chloride 106 mmol/L (98-107); Cholesterol 183 mg/dL (140-199); Estimated Glomerular Filt Rate > 60 mL/min (>60); Globulin 2.3 g/dL (1.7-4.1); Glucose 104 mg/dL (70-99); HDL Cholesterol 102 mg/dL (40-60); HEMOLYSIS < 15 (0-50); Potassium 3.8 mmol/L (3.4-5.1); Sodium 139 mmol/L (137-145); Total Protein 6.9 g/dL (6.3-8.2); Triglycerides 65 mg/dL (35-150)
[2025-07-05 09:11] LABS: Thyroid Stimulating Hormone 1.47 uIU/mL (0.47-4.68)
== END ==
PROVIDERS: PCP Family Medicine; Referring Provider Family Medicine; Visit Provider Family Medicine
DX: E78.00 Pure hypercholesterolemia, unspecified (principal); Z13.0 Encounter for screening for diseases of the blood and blood-forming organs and certain disorders involving the immune mechanism; Z13.220 Encounter for screening for lipoid disorders; Z13.29 Encounter for screening for other suspected endocrine disorder; Z13.6 Encounter for screening for cardiovascular disorders
CPT/HCPCS: 36415; 80053; 80061; 84443; 85025

== ENCOUNTER → 2025-08-02 08:15 | Outpatient (CLI) | payer MEDICARE, OTHER, SELFPAY ==
--- NOTE | 2025-08-02 08:16 | DI.MG.S_ITS ---
MM screening mammo BI: 08/02/2025. BI-RADS: 1 CLINICAL: 74-year old female for bilateral screening mammogram. Tyrer-Cuzick lifetime risk of 4.4%. No personal or first-degree family history of breast cancer. Current reported family history of breast cancer: maternal aunt. PRIOR EXAMS 07/31/2024, 07/29/2023, 08/31/2022, 07/27/2022. MAMMOGRAPHY TECHNIQUE: 2D and 3D (tomosynthesis) digital mammographic views obtained, with additional images as needed for full coverage. Current study was also evaluated with a Computer Aided Detection (CAD) system. DENSITY C. The breasts are heterogeneously dense, which may obscure small masses. MAMMOGRAPHY FINDINGS Bilateral: No suspicious mass, asymmetry, microcalcification, or other abnormality seen. IMPRESSION: * No evidence of malignancy. RECOMMENDATIONS Bilateral * Annual screening mammography. OVERALL ASSESSMENT CATEGORY BI-RADS-1: Negative. The [employer] recommends annual screening mammography beginning at age 40 for women with average risk of breast cancer. ELECTRONICALLY SIGNED: Sherry Arevalo M.D. on 08/03/2025 at 09:09:55 AM PT Interpreting Station ID: [id number]
== END ==
LOC: MAMMO 08:16
PROVIDERS: PCP Family Medicine; Referring Provider Family Medicine; Visit Provider Family Medicine
DX: Z12.31 Encounter for screening mammogram for malignant neoplasm of breast (principal); R92.333 Mammographic heterogeneous density, bilateral breasts; Z80.3 Family history of malignant neoplasm of breast
CPT/HCPCS: 77063; 77067